=== PATIENT | male | born 1965 | race American Indian/Alaskan Native ===

== ENCOUNTER 2016-04-30 08:07 | Day surgery (SDC) | payer MEDICARE ==
[2016-04-26 08:15] VITALS: BMI 43.4
[2016-04-30 09:16] VITALS: O2SAT 95
[2016-04-30] MEDS ORDERED: Midazolam 2 MG/2 ML VIAL ONE ×2 (10:26→10:38)
[2016-04-30] MEDS ORDERED: Etomidate 20 mg/10ml Inj IV ONE (10:26)
[2016-04-30] MEDS ORDERED: ePHEDrine 50 mg/ml Inj ONE (10:27)
[2016-04-30] MEDS ORDERED: EPINEPHrine 1 mg/ml (1:1000) Inj ONE (10:27)
--- NOTE | 2016-04-30 11:12 | CP.SDSHP ---
Same Day Surgery H & P - History Proposed Procedure: CT guided left thigh lipoma biopsy. Pre-Op Diagnosis: Lipoma - Previous Medical/Surgical History Cardiac: ASHD/CAD - Allergies Allergies: Allergies nut - unspecified [nut] Adverse Reaction (Verified 09/17/15 18:16) RASH - Physical Exam Vital Signs: Vital Signs 04/30/16 08:34 Temperature 97.6 F Pulse Rate 73 Respiratory 20 Rate Blood Pressure 159/91 H O2 Sat by Pulse 95 Oximetry Mental Status: Alert & Oriented x3 Neuro: WNL Heart: WNL Lungs: WNL - Impression Impression: Pt with a left thigh lipoma. Plan CT guided core biopsy. Pt. Evaluated Today:Candidate for Anesthesia & Procedure: Yes (ASA 3 Malampati 4) - Date & Time Date: 04/30/16 Time: 10:00 Short Stay Discharge - Short Stay Discharge Admitting Diagnosis/Reason for Visit: LEAH Disposition: HOME/ ROUTINE
--- NOTE | 2016-04-30 11:15 | PCM.SURG1 ---
Surgeon's Initial Post Op Note - Surgeon's Notes Surgeon: Ciro Neumann MD Assembler Corncob Pipes: None Type of Anesthesia: IV Sedation Pre-Operative Diagnosis: Lipoma Operative Findings: CT showed a lipoma between the left vastus medialis and lateralis muscles in the upper thigh. Post-Operative Diagnosis: Lipoma Operation Performed: CT guided core biopsy of left thigh lipoma. Specimen/Specimens Removed: 18 g core x 3 Estimated Blood Loss: EBL {In ML}: 0 Blood Products Given: N/A Drains Used: No Drains Post-Op Condition: Good Date of Surgery/Procedure: 04/30/16 Time of Surgery/Procedure: 11:00
[2016-04-30 11:53] VITALS: RESP 18; TEMP 97.3
[2016-04-30 12:03] VITALS: BP 127/78; PULSE 73
--- NOTE | 2016-04-30 12:51 | CT ---
PROCEDURE: Date of procedure: 04/30/2016 Procedure: 1. CT-guided biopsy of left thigh soft tissue mass 2. CT guidance for procedure, [address] Medications: The patient sedated by the anesthesiologist with IV sedation, 8 cc 1 percent lidocaine HISTORY: Large left thigh soft tissue mass which may represent a lipoma. TECHNIQUE: Following informed consent and procedure time-out, the patient was placed supine on the CT table noncontrast CT scan of the lower pelvis and proximal thigh was performed. A large hypodense mass is is present between the vastus medialis and lateralis muscles in the proximal left thigh. The patient was sedated by the anesthesiologist in the thigh was prepped and draped in the usual sterile fashion. After the skin was anesthetized with 1 percent lidocaine, an 18 gauge core needle was advanced under CT guidance into the mass. Upon confirmation of needle position, three 18 gauge core specimens were obtained and sent for routine histology. A post biopsy CT scan showed no hematoma. IMPRESSION: CT-guided biopsy core biopsy of left thigh hypodense soft tissue mass.
== END 2016-04-30 12:03 | disposition home or self-care (01) ==
LOC: C.SPRAD 08:07
PROVIDERS: ATTEND Radiology Vascular & Interventional Radiology
DX: D17.24 Benign lipomatous neoplasm of skin and subcutaneous tissue of left leg (principal); I25.10 Atherosclerotic heart disease of native coronary artery without angina pectoris; E11.9 Type 2 diabetes mellitus without complications
CPT/HCPCS: 20206; 77012; 82948; 88305; J0171; J2250; J3010

== ENCOUNTER 2016-05-06 09:36 | Emergency (ER) | payer MEDICARE ==
[2016-05-06 09:36] VITALS: BMI 43.4
[2016-05-06 09:46] VITALS: BP 163/96; PULSE 74; RESP 18; TEMP 98; O2SAT 96
--- NOTE | 2016-05-06 10:31 | C.PDOC ---
History Of Present Illness 50 year old male presents to the ED with complaints of left foot pain, swelling , and redness that has worsened over the last one week. He was told by PMD that he has gout and was given allopurinol. Patient denies any falls, injuries, fever, calf pain, chest pain, or SOB. Time Seen by Provider: 05/06/16 09:48 Chief Complaint (Nursing): Lower Extremity Problem/Injury History Per: Patient History/Exam Limitations: no limitations Onset/Duration Of Symptoms: Days Current Symptoms Are (Timing): Still Present - Knee Description Of Injury: denies: Fell - Ankle/Foot Description Of Injury: denies: Fell Past Medical History Reviewed: Historical Data, Nursing Documentation, Vital Signs Vital Signs: Last Vital Signs Temp 98 F 05/06/16 09:42 Pulse 74 05/06/16 09:42 Resp 18 05/06/16 09:42 BP 163/96 H 05/06/16 09:42 Pulse Ox 96 05/06/16 11:38 - Medical History PMH: Asthma (seasonal), Cardia Arrhythmia, CHF (Sys LV chronic, non ischemic on cath), Diabetes, HTN, Hypercholesterolemia, Hyperlipidemia, Seizures (childhood no longer), Sleep Apnea Surgical History: Endoscopy, Pacemaker - [facility] Procedures INFLUENZA VACCINATION (01/06/14) VACCINATION NEC (01/06/14) Family History: States: Unknown Family Hx - Social History Hx Tobacco Use: Yes Hx Alcohol Use: No Hx Substance Use: No - Immunization History Hx Tetanus Toxoid Vaccination: Yes Hx Influenza Vaccination: Yes Hx Pneumococcal Vaccination: Yes Review Of Systems Constitutional: Negative for: Fever, Chills Cardiovascular: Negative for: Chest Pain Respiratory: Negative for: Shortness of Breath Gastrointestinal: Negative for: Nausea, Vomiting, Diarrhea Musculoskeletal: Positive for: Foot Pain (left foot pain, swelling, and erythema ). Negative for: Leg Pain Physical Exam - Physical Exam Appears: Non-toxic, No Acute Distress, Other (appears in mild pain) Skin: Warm, Dry Cardiovascular: Rhythm Regular, No Murmur Respiratory: No Accessory Muscle Use, No Rales, No Rhonchi, No Stridor, No Wheezing Gastrointestinal/Abdominal: Soft, No Tenderness, No Guarding, No Rebound Extremity: Normal ROM, Tenderness (moderate to palpation on left foot first MTP joint ), No Calf Tenderness, Capillary Refill (less than 2 seconds ), Swelling ( mild swelling and erythema to left food first MTP joint ), Other (no flux, duration, discharge, or rash. No wounds on foot or near toes. ) Pulses: Left Femoral: Normal, Right Femoral: Normal, Left Dorsalis Pedis: Normal , Right Dorsalis Pedis: Normal Neurological/Psych: Oriented x3 ED Course And Treatment O2 Sat by Pulse Oximetry: 96 Medical Decision Making Medical Decision Making: Patient was given colchoicine and indomethacin prescriptions and told to follow up with primary care doctor. Disposition Counseled Patient/Family Regarding: Diagnosis, Need For Followup, Rx Given - Disposition Referrals: Mak Eastman MD [Staff Provider] - Disposition: HOME/ ROUTINE Disposition Time: 10:35 Condition: GOOD Additional Instructions: FOLLOW UP WITH YOUR DOCTOR IN 1-2 DAYS USE MEIDCATIONS DIRECTED - STOP ALLOPURINOL UNTIL 2 DAYS AFTER SYMPTOMS RESOLVE RETURN TO ER IF SYMPTOMS WORSEN Prescriptions: Colchicine 0.6 mg PO BID #6 capsule Indomethacin [Indocin] 50 mg PO TID #21 cap Instructions: Gout (ED) Print Language: AMERICAN - POA Present On Arrival: None - Clinical Impression Clinical Impression: Gout attack - Scribe Statement The provider has reviewed the documentation as recorded by the Scribe Inga Fraga All medical record entries made by the Scribe were at my direction and personally dictated by me. I have reviewed the chart and agree that the record accurately reflects my personal performance of the history, physical exam, medical decision making, and the department course for this patient. I have also personally directed, reviewed, and agree with the discharge instructions and disposition.
== END 2016-05-06 10:56 | disposition home or self-care (01) ==
LOC: C.ER 09:36
DX: M10.9 Gout, unspecified (principal)

== ENCOUNTER 2016-11-14 06:36 | Emergency (ER) | payer MEDICARE ==
[2016-11-14 06:36] VITALS: BMI 43.4
[2016-11-14 06:52] VITALS: BP 161/85; PULSE 72; RESP 18; TEMP 98.3; O2SAT 97
--- NOTE | 2016-11-14 07:35 | C.PDOC ---
History Of Present Illness 51 year old male, with PMHx of gout, presents to ED for evaluation of left foot/ great toe pain for the past week. Patient states it feels similar to previous gout exacerbations. Patient admits to not being compliant with Allopurinol. Otherwise, denies fall/injures, fever/chills, rash, sensory changes. Time Seen by Provider: 11/14/16 07:03 Chief Complaint (Nursing): Lower Extremity Problem/Injury History Per: Patient History/Exam Limitations: no limitations Onset/Duration Of Symptoms: Days Current Symptoms Are (Timing): Still Present Severity: Moderate Additional History Per: Patient Past Medical History Reviewed: Historical Data, Nursing Documentation, Vital Signs Vital Signs: Last Vital Signs Temp 98.3 F 11/14/16 06:48 Pulse 72 11/14/16 06:48 Resp 18 11/14/16 06:48 BP 161/85 H 11/14/16 06:48 Pulse Ox 97 11/14/16 08:56 - Medical History PMH: Asthma (seasonal), Cardia Arrhythmia, CHF (Sys LV chronic, non ischemic on cath), Diabetes, HTN, Hypercholesterolemia, Hyperlipidemia, Seizures (childhood no longer), Sleep Apnea Surgical History: Endoscopy, Pacemaker - [facility] Procedures INFLUENZA VACCINATION (01/06/14) VACCINATION NEC (01/06/14) Family History: States: No Known Family Hx - Social History Hx Tobacco Use: Yes Hx Alcohol Use: Yes Hx Substance Use: No - Immunization History Hx Tetanus Toxoid Vaccination: Yes Hx Influenza Vaccination: Yes Hx Pneumococcal Vaccination: Yes Review Of Systems Except As Marked, All Systems Reviewed And Found Negative. Constitutional: Negative for: Fever, Chills Respiratory: Negative for: Shortness of Breath Musculoskeletal: Positive for: Foot Pain (left) Skin: Negative for: Rash Neurological: Negative for: Weakness, Numbness Physical Exam - Physical Exam Appears: Well, Non-toxic, No Acute Distress Skin: Normal Color, Warm, Dry, No Rash Eye(s): bilateral: Normal Inspection Oral Mucosa: Moist Neck: Supple Cardiovascular: Rhythm Regular Respiratory: Normal Breath Sounds, No Rales, No Rhonchi, No Wheezing Extremity: Normal ROM (FROM of left foot), Tenderness (tenderness to palpation of left foot 1st MTP joint ), No Calf Tenderness, Capillary Refill (<2 seconds all digits), No Deformity, Swelling (mild swelling and warmth at left foot 1st MTP joint, no erythema) Extremity: Bilateral: Atraumatic Pulses: Left Dorsalis Pedis: Normal, Right Dorsalis Pedis: Normal Neurological/Psych: Oriented x3, Normal Sensation Gait: Steady ED Course And Treatment O2 Sat by Pulse Oximetry: 97 (on RA) Pulse Ox Interpretation: Normal Progress Note: Patient was PO colchicine and PO Indomethacin, as well as Rxs for same. He was instructed to follow up with PMD in 1-2 days, and understands he should return to ED if symptoms worsen. Reevaluation Time: 07:50 Reassessment Condition: Improved Disposition Counseled Patient/Family Regarding: Diagnosis, Need For Followup, Rx Given - Disposition Referrals: Mak Eastman MD [Staff Provider] - Disposition: HOME/ ROUTINE Disposition Time: 07:50 Condition: STABLE Additional Instructions: FOLLOW UP WITH YOUR DOCTOR IN 1-2 DAYS USE MEDICATIONS DIRECTED RETURN TO ER IF SYMPTOMS WORSEN Prescriptions: Colchicine 0.6 mg PO DAILY #3 tablet Indomethacin [Indocin] 50 mg PO TID PRN #20 cap PRN Reason: PAIN Instructions: Gout (ED) Forms: ServiceRelated (Bulgarian) Print Language: AZERI - Clinical Impression Clinical Impression: Gout attack - Scribe Statement The provider has reviewed the documentation as recorded by the Scribe Nika Moss All medical record entries made by the Dinaibe were at my direction and personally dictated by me. I have reviewed the chart and agree that the record accurately reflects my personal performance of the history, physical exam, medical decision making, and the department course for this patient. I have also personally directed, reviewed, and agree with the discharge instructions and disposition.
== END 2016-11-14 07:52 | disposition home or self-care (01) ==
LOC: C.ER 06:36
DX: M10.9 Gout, unspecified (principal); Z91.19 Patient's noncompliance with other medical treatment and regimen

== ENCOUNTER 2017-01-17 10:22 | Inpatient (IN) | payer MEDICARE ==
[2017-01-17 10:23] VITALS: BMI 43.4
--- NOTE | 2017-01-17 11:16 | C.PDOC ---
History Of Present Illness 51 year old male presents to the ED for evaluation of SOB that worsens with laying flat and with exertion that started last . Patient reports he was [place] [facility] [place] an [place], was given 3 epi shots because "his tongue and lips were swollen" and was admitted overnight. 2 days after being discharged home he started to feel the SOB, which has been worsening since. Patient denies CP, abdominal pain, nausea, vomiting, diarrhea, fever, cough. Time Seen by Provider: 01/17/17 10:34 Chief Complaint (Nursing): Shortness Of Breath History Per: Patient History/Exam Limitations: no limitations Onset/Duration Of Symptoms: Days Current Symptoms Are (Timing): Still Present Exacerbating Factor(s): Exertion, Laying Flat Severity: Moderate Associated Symptoms: denies: Fever, Chills, Productive Cough, Dizziness Reports Recently: Hospitalized [place] Additional History Per: Patient Past Medical History Reviewed: Historical Data, Nursing Documentation, Vital Signs Vital Signs: Last Vital Signs Temp 97.6 F 01/18/17 15:37 Pulse 97 H 01/18/17 16:00 Resp 20 01/18/17 15:37 BP 115/74 01/18/17 15:37 Pulse Ox 96 01/18/17 15:37 - Medical History PMH: Asthma (seasonal), Cardia Arrhythmia, CHF (Sys LV chronic, non ischemic on cath), Diabetes, HTN, Hypercholesterolemia, Hyperlipidemia, Seizures (childhood no longer), Sleep Apnea Surgical History: Endoscopy, Pacemaker - [facility] Procedures INFLUENZA VACCINATION (01/06/14) VACCINATION NEC (01/06/14) Family History: States: No Known Family Hx - Social History Hx Tobacco Use: Yes Hx Alcohol Use: Yes Hx Substance Use: No - Immunization History Hx Tetanus Toxoid Vaccination: Yes Hx Influenza Vaccination: Yes Hx Pneumococcal Vaccination: Yes Review Of Systems Except As Marked, All Systems Reviewed And Found Negative. Constitutional: Negative for: Fever, Chills Cardiovascular: Negative for: Chest Pain, Palpitations Respiratory: Positive for: Shortness of Breath. Negative for: Cough Gastrointestinal: Negative for: Nausea, Vomiting, Abdominal Pain Musculoskeletal: Negative for: Neck Pain Skin: Negative for: Rash Neurological: Negative for: Weakness, Numbness Physical Exam - Physical Exam Appears: Well, Non-toxic, No Acute Distress, Other (Morbidly obese, speaking full sentences) Skin: Normal Color, Warm, Dry Head: Normacephalic Eye(s): bilateral: Normal Inspection Oral Mucosa: Moist Neck: Supple Chest: Symmetrical Cardiovascular: Rhythm Regular Respiratory: No Accessory Muscle Use, Rales (B/L at the base), No Rhonchi, No Wheezing Gastrointestinal/Abdominal: Normal Exam, Bowel Sounds, Soft, No Tenderness, Other (Obese) Back: No CVA Tenderness Extremity: Normal ROM, No Calf Tenderness, Swelling (+1 pitting edema B/L LEs) Pulses: Left Dorsalis Pedis: Normal, Right Dorsalis Pedis: Normal Neurological/Psych: Oriented x3 Gait: Steady ED Course And Treatment - Laboratory Results Result Diagrams: 01/18/17 07:51 01/18/17 07:51 ECG: Interpreted By Me, Viewed By Me (sinus tachycardia 101 bpm, normal axis, PVCs, QTc 523ms, no acute ST changes) ECG Interpretation: Abnormal O2 Sat by Pulse Oximetry: 87 (RA) Pulse Ox Interpretation: Abnormal - Radiology CXR: Interpreted by Me, Viewed By Me CXR Interpretation: Yes: Other (Cardiomegaly. Left-sided pacemaker. Mild pulmonary venous congestion.) Progress Note: Plan: Blood work, CXR, EKG ordered and reviewed. Patient given IV Lasix, O2 by NM. - Physician Consult Information Physician Contacted: Mak Eastman Outcome Of Conversation: Discussed patient with PMD, agrees with admission for CHF exacerbation, dyspnea, elevated BNP. Medical Decision Making Medical Decision Making: diferential diagnoses considered: CHF exacerbation, COPD/asthma, CA/ASA, pneumonia, bronchitis Disposition - Disposition Disposition: HOSPITALIZED Disposition Time: 13:32 Condition: STABLE - Clinical Impression Clinical Impression: CHF exacerbation, Dyspnea, Elevated brain natriuretic peptide (BNP) level - Scribe Statement The provider has reviewed the documentation as recorded by the Scribe Donnie Schulz All medical record entries made by the Scribe were at my direction and personally dictated by me. I have reviewed the chart and agree that the record accurately reflects my personal performance of the history, physical exam, medical decision making, and the department course for this patient. I have also personally directed, reviewed, and agree with the discharge instructions and disposition. Decision To Admit - Pt Status Changed To: Hospital Disposition Of: Observation - . Bed Request Type: Telemetry Admitting Physician: Mak Eastman Patient Diagnosis: CHF exacerbation, Dyspnea, Elevated brain natriuretic peptide (BNP) level
[2017-01-17 11:29] LABS: BASO # 0.1 K/uL (0.0-0.2); BASO % 0.6 % (0.0-2.0); EOS # 0.1 K/uL (0.0-0.7); HEMATOCRIT 39.4 % (35.0-51.0); LYMPH # 2.9 K/uL (1.0-4.3); LYMPH % 21.1 % (20.0-40.0); MEAN CORPUSCULAR HEMOGLOBIN 30.2 pg (27.0-31.0); MEAN PLATELET VOLUME 7.7 fL (7.2-11.7); MONO # 0.8 K/uL (0.0-0.8); MONO % 5.7 % (0.0-10.0); NRBC % 0.1 % (0.0-2.0); RED CELL DISTRIBUTION WIDTH 13.6 % (11.5-14.5); WHITE BLOOD COUNT 13.5 K/uL (4.8-10.8)
[2017-01-17 11:32] LABS: MEAN CELL VOLUME 91.3 fL (80.0-94.0)
[2017-01-17 11:34] LABS: INR 1.1
[2017-01-17 11:37] LABS: ALB/GLOB RATIO 1.4 (1.0-2.1); ALKALINE PHOSPHATASE 78 U/L (38-126); ALT/SGPT 80 U/L (21-72); AST/SGOT 36 U/L (17-59); BILIRUBIN,TOTAL 0.9 mg/dL (0.2-1.3); BLOOD UREA NITROGEN 18 mg/dL (9-20); CALCIUM 8.7 mg/dl (8.6-10.4); CARBON DIOXIDE 31 mmol/L (22-30); CHLORIDE 104 mmol/L (98-107); GFR AFRICAN-AMERICAN > 60; GLUCOSE,RANDOM 168 mg/dL (75-110); POTASSIUM 3.7 mmol/L (3.6-5.2); SODIUM 144 mmol/L (132-148); TOTAL PROTEIN 6.7 g/dL (6.3-8.3)
--- NOTE | 2017-01-17 13:09 | RAD ---
HISTORY: SOB COMPARISON: Chest x-ray performed 06/05/15 TECHNIQUE: Chest, one view. FINDINGS: Examination limited by habitus. LUNGS: Azygos lobe, anatomic variant. Mild pulmonary venous congestion. No focal consolidation. Please note that chest x-ray has limited sensitivity for the detection of pulmonary masses. PLEURA: No significant pleural effusion identified. No definite pneumothorax . CARDIOVASCULAR: Left-sided pacemaker. Cardiomegaly. OSSEOUS STRUCTURES: Degenerative changes. VISUALIZED UPPER ABDOMEN: Unremarkable. OTHER FINDINGS: None. IMPRESSION: Cardiomegaly. Left-sided pacemaker. Mild pulmonary venous congestion.
[2017-01-17 15:41] VITALS: RESP 20
[2017-01-17] MEDS ORDERED: Albuterol HFA 90 mcg/actuation (8 g) IH PRN (15:59)
[2017-01-17] MEDS ORDERED: Rosuvastatin Calcium 2.5 mg Tab PO SCH (22:00)
--- NOTE | 2017-01-17 23:48 | CP.PCM.HP ---
History of Present Illness - History of Present Illness History of Present Illness: CC; shortness of breath HPI: 51 year old male with PMH of Htn, Hyperlipidemia, CHF, OA , sleep apnea, non complaint with diet and medications presents to the ED for evaluation of SOB that worsens while laying flat, and exertion that started last . Patient reports he was seen at [facility] for an allergic reaction, patient states he was given 3 epi shots because his tongue and lips were swollen, patient was kept there overnight. Patient was d/c and went home, but 2 days after being home he started to feel SOB and has been worsening since. Patient denies CP, abdominal pain, nausea, vomit, diarrhea. Present on Admission - Present on Admission Any Indicators Present on Admission: Yes Review of Systems - Review of Systems Systems not reviewed;Unavailable: Acuity of Condition - Constitutional Constitutional: Fatigue, Lethargy, Malaise - EENT Eyes: absent: As Per HPI, Blind Spots, Blurred Vision, Change in Vision, Decreased Night Vision, Diplopia, Discharge, Dry Eye, Exophthalmos, Floaters, Irritation, Itchy Eyes, Loss of Peripheral Vision, Pain, Photophobia, Requires Corrective Lenses, Sees Flashes, Spots in Vision, Tunnel Vision, Other Visual Disturbances, Loss of Vision, Other Nose/Mouth/Throat: absent: As Per HPI, Epistaxis, Nasal Congestion, Nasal Discharge, Nasal Obstruction, Nasal Trauma, Nose Pain, Post Nasal Drip, Sinus Pain, Sinus Pressure, Bleeding Gums, Change in Voice, Dental Pain, Dry Mouth, Dysphagia, Halitosis, Hoarsness, Lip Swelling, Mouth Lesions, Mouth Pain, Odynophagia, Sore Throat, Throat Swelling, Tongue Swelling, Facial Pain, Neck Pain, Neck Mass, Other - Cardiovascular Cardiovascular: Chest Pain, Dyspnea. absent: As Per HPI, Acrocyanosis, Chest Pain at Rest, Chest Pain with Activity, Claudication, Diaphoresis, Dyspnea on Exertion, Edema, Irregular Heart Rhythm, Pain Radiating to Arm/Neck/Jaw, Leg Edema, Leg Ulcers, Lightheadedness, Orthopnea, Palpitations, Paroxysmal Nocturnal Dyspnea, Pedal Edema, Radiating Pain, Rapid Heart Rate, Slow Heart Rate, Syncope, Other - Respiratory Respiratory: Cough, Dyspnea Past Patient History - Infectious Disease Hx of Infectious Diseases: None - Past Medical History & Family History Past Medical History?: Yes - Past Social History Smoking Status: Former Smoker - CARDIAC Hx Cardia Arrhythmia: Yes Hx Congestive Heart Failure: Yes (Sys LV chronic, non ischemic on cath) Hx Hypercholesterolemia: Yes Hx Hypertension: Yes Hx Pacemaker: Yes - PULMONARY Hx Asthma: Yes (seasonal) Hx Sleep Apnea: Yes - NEUROLOGICAL Hx Seizures: Yes (childhood no longer) - HEENT Hx HEENT Problems: No - RENAL Hx Chronic Kidney Disease: No - ENDOCRINE/METABOLIC Hx Endocrine Disorders: Yes Hx Diabetes Mellitus Type 2: Yes - HEMATOLOGICAL/ONCOLOGICAL Hx Blood Disorders: No - INTEGUMENTARY Hx Dermatological Problems: No - MUSCULOSKELETAL/RHEUMATOLOGICAL Hx Musculoskeletal Disorders: Yes (pain right shoulder) Hx Back Pain: Yes Hx Falls: No - GASTROINTESTINAL Hx Gastrointestinal Disorders: Yes (gas) Other/Comment: hepatomegaly - GENITOURINARY/GYNECOLOGICAL Hx Genitourinary Disorders: No - PSYCHIATRIC Hx Substance Use: No - SURGICAL HISTORY Hx Surgeries: Yes 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 - ANESTHESIA Hx Anesthesia: Yes Hx Anesthesia Reactions: No Hx Malignant Hyperthermia: No Meds Allergies/Adverse Reactions: Allergies Allergy/AdvReac Type Severity Reaction Status Date / Time nut - unspecified [nut] AdvReac RASH Verified 01/17/17 10:27 Physical Exam - Constitutional Appears: No Acute Distress - Eye Exam Eye Exam: EOMI, Normal appearance, PERRL Pupil Exam: NORMAL ACCOMODATION, PERRL - ENT Exam ENT Exam: Mucous Membranes Moist, Normal Exam - Respiratory Exam Respiratory Exam: Decreased Breath Sounds, Rales, Rhonchi - Cardiovascular Exam Cardiovascular Exam: REGULAR RHYTHM - GI/Abdominal Exam GI & Abdominal Exam: Normal Bowel Sounds, Soft. absent: Tenderness Results - Vital Signs Recent Vital Signs: Last Vital Signs Temp 98.5 F 01/17/17 17:18 Pulse 92 H 01/17/17 23:38 Resp 20 01/17/17 17:18 BP 148/89 01/17/17 17:18 Pulse Ox 93 L 01/17/17 22:32 - Labs Result Diagrams: 01/18/17 07:51 01/18/17 07:51 Labs: Laboratory Results - last 24 hr 01/17/17 01/17/17 01/17/17 11:19 11:19 11:19 WBC 13.5 H RBC 4.32 L Hgb 13.0 Hct 39.4 MCV 91.3 D MCH 30.2 MCHC 33.0 RDW 13.6 Plt Count 207 MPV 7.7 Neut % (Auto) 71.6 Lymph % (Auto) 21.1 [place] % (Auto) 5.7 Eos % (Auto) 1.0 Baso % (Auto) 0.6 Neut # 9.7 H Lymph # 2.9 [place] # 0.8 Eos # 0.1 Baso # 0.1 PT 12.0 INR 1.1 APTT 34 Sodium 144 Potassium 3.7 Chloride 104 Carbon Dioxide 31 H Anion Gap 13 BUN 18 Creatinine 1.0 Est GFR ( Amer) > 60 Est GFR (Non-Af Amer) > 60 POC Glucose (mg/dL) Random Glucose 168 H Calcium 8.7 Total Bilirubin 0.9 AST 36 ALT 80 H Alkaline Phosphatase 78 Total Creatine Kinase 99 CK-MB (Mass) 1.84 Troponin I 0.0550 NT-Pro-B Natriuret Pep 4060 H Total Protein 6.7 Albumin 3.9 Globulin 2.8 Albumin/Globulin Ratio 1.4 01/17/17 01/17/17 01/17/17 12:32 17:05 21:11 WBC RBC Hgb Hct MCV MCH MCHC RDW Plt Count MPV Neut % (Auto) Lymph % (Auto) [place] % (Auto) Eos % (Auto) Baso % (Auto) Neut # Lymph # [place] # Eos # Baso # PT INR APTT Sodium Potassium Chloride Carbon Dioxide Anion Gap BUN Creatinine Est GFR ( Amer) Est GFR (Non-Af Amer) POC Glucose (mg/dL) 157 H 168 H 180 H Random Glucose Calcium Total Bilirubin AST ALT Alkaline Phosphatase Total Creatine Kinase CK-MB (Mass) Troponin I NT-Pro-B Natriuret Pep Total Protein Albumin Globulin Albumin/Globulin Ratio Assessment & Plan (1) CHF (congestive heart failure) Assessment and Plan: diuresis Status: Acute (2) Chest pain Assessment and Plan: cardiac enzymes Status: Acute (3) Diabetes mellitus Status: Chronic (4) Hyperlipidemia Status: Chronic (5) Hypertension Status: Chronic
[2017-01-18 08:12] LABS: HEMATOCRIT 40.4 % (35.0-51.0); MEAN CELL VOLUME 90.6 fL (80.0-94.0); MEAN CORPUSCULAR HEMOGLOBIN 30.3 pg (27.0-31.0); MEAN CORPUSCULAR HGB CONC 33.4 g/dL (33.0-37.0); MEAN PLATELET VOLUME 8.1 fL (7.2-11.7); RED CELL DISTRIBUTION WIDTH 13.7 % (11.5-14.5); WHITE BLOOD COUNT 14.9 K/uL (4.8-10.8)
[2017-01-18 08:52] LABS: BLOOD UREA NITROGEN 19 mg/dL (9-20); CALCIUM 8.7 mg/dl (8.6-10.4); CARBON DIOXIDE 33 mmol/L (22-30); CHLORIDE 100 mmol/L (98-107); GFR AFRICAN-AMERICAN > 60; GLUCOSE,RANDOM 180 mg/dL (75-110); POTASSIUM 3.8 mmol/L (3.6-5.2); SODIUM 141 mmol/L (132-148)
--- NOTE | 2017-01-18 09:13 | CP.PCM.CON ---
History of Present Illness - History of Present Illness History of Present Illness: The pt is a 51 year obese man with HTN , DM and sleep apnea, with another admission for CHF. EF is reduced, normal coronaries by cath a few years ago according to patient and notes. he refused an ICD in the past. BNP is elevated and cxr mild chf. Pt not on bar/arb, and sub-therapeutic aldactone dose. Review of Systems - Review of Systems All systems: reviewed and no additional remarkable complaints except (dyspnea, otherwise negative) Past Patient History - Infectious Disease Hx of Infectious Diseases: None - Past Medical History & Family History Past Medical History?: Yes - Past Social History Smoking Status: Former Smoker - CARDIAC Hx Cardia Arrhythmia: Yes Hx Congestive Heart Failure: Yes (Sys LV chronic, non ischemic on cath) Hx Hypercholesterolemia: Yes Hx Hypertension: Yes Hx Pacemaker: Yes - PULMONARY Hx Asthma: Yes (seasonal) Hx Sleep Apnea: Yes - NEUROLOGICAL Hx Seizures: Yes (childhood no longer) - HEENT Hx HEENT Problems: No - RENAL Hx Chronic Kidney Disease: No - ENDOCRINE/METABOLIC Hx Endocrine Disorders: Yes Hx Diabetes Mellitus Type 2: Yes - HEMATOLOGICAL/ONCOLOGICAL Hx Blood Disorders: No - INTEGUMENTARY Hx Dermatological Problems: No - MUSCULOSKELETAL/RHEUMATOLOGICAL Hx Musculoskeletal Disorders: Yes (pain right shoulder) Hx Back Pain: Yes Hx Falls: No - GASTROINTESTINAL Hx Gastrointestinal Disorders: Yes (gas) Other/Comment: hepatomegaly - GENITOURINARY/GYNECOLOGICAL Hx Genitourinary Disorders: No - PSYCHIATRIC Hx Substance Use: No - SURGICAL HISTORY Hx Surgeries: Yes 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 - ANESTHESIA Hx Anesthesia: Yes Hx Anesthesia Reactions: No Hx Malignant Hyperthermia: No Meds Allergies/Adverse Reactions: Allergies Allergy/AdvReac Type Severity Reaction Status Date / Time nut - unspecified [nut] AdvReac RASH Verified 01/17/17 10:27 - Medications Medications: Current Medications Albuterol (Ventolin Hfa 90 Mcg/Actuation (8 G)) 2 puff IH RQ6 PRN PRN Reason: Shortness of Breath Allopurinol (Zyloprim) 100 mg PO DAILY [facility] Amlodipine Besylate (Norvasc) 5 mg PO DAILY [facility] Aspirin (Ecotrin) 81 mg PO DAILY [facility] Colchicine (Colocrys) 0.6 mg PO BID [facility] Last Admin: 01/17/17 17:22 Dose: Not Given Enoxaparin Sodium (Lovenox) 40 mg SC DAILY [facility] Furosemide (Lasix) 40 mg IVP DAILY [facility] Last Admin: 01/17/17 17:18 Dose: 40 mg Glimepiride (Amaryl) 4 mg PO DAILY [facility] Hydralazine HCl (Apresoline) 25 mg PO DAILY [facility] Metformin HCl (Glucophage) 500 mg PO BID [facility] Metoprolol Succinate (Toprol Xl) 100 mg PO DAILY [facility] Pantoprazole Sodium (Protonix Ec Tab) 40 mg PO DAILY [facility] Rosuvastatin Calcium (Crestor) 2.5 mg PO HS [facility] Last Admin: 01/17/17 21:27 Dose: 2.5 mg Physical Exam - Constitutional Appears: Well - Head Exam Head Exam: ATRAUMATIC, NORMOCEPHALIC - Eye Exam Eye Exam: Normal appearance Pupil Exam: NORMAL ACCOMODATION - ENT Exam ENT Exam: Mucous Membranes Moist - Respiratory Exam Respiratory Exam: Clear to Auscultation Bilateral - Cardiovascular Exam Cardiovascular Exam: REGULAR RHYTHM - GI/Abdominal Exam GI & Abdominal Exam: Normal Bowel Sounds - Exam External exam: NORMAL EXTERNAL EXAM - Extremities Exam Extremities exam: Positive for: pedal edema - Back Exam Back exam: NORMAL INSPECTION - Neurological Exam Neurological exam: Alert, CN II-XII Intact, Oriented x3, Reflexes Normal - Skin Skin Exam: Normal Color Results - Vital Signs Recent Vital Signs: Last Vital Signs Temp 97.9 F 01/18/17 08:31 Pulse 92 H 01/18/17 08:31 Resp 20 01/18/17 08:31 BP 152/96 H 01/18/17 08:31 Pulse Ox 94 L 01/18/17 08:31 - Labs Result Diagrams: 01/18/17 07:51 01/18/17 07:51 Labs: Laboratory Results - last 24 hr 01/17/17 01/17/17 01/17/17 11:19 11:19 11:19 WBC 13.5 H RBC 4.32 L Hgb 13.0 Hct 39.4 MCV 91.3 D MCH 30.2 MCHC 33.0 RDW 13.6 Plt Count 207 MPV 7.7 Neut % (Auto) 71.6 Lymph % (Auto) 21.1 Baker % (Auto) 5.7 Eos % (Auto) 1.0 Baso % (Auto) 0.6 Neut # 9.7 H Lymph # 2.9 Baker # 0.8 Eos # 0.1 Baso # 0.1 PT 12.0 INR 1.1 APTT 34 Sodium 144 Potassium 3.7 Chloride 104 Carbon Dioxide 31 H Anion Gap 13 BUN 18 Creatinine 1.0 Est GFR ( Amer) > 60 Est GFR (Non-Af Amer) > 60 POC Glucose (mg/dL) Random Glucose 168 H Calcium 8.7 Total Bilirubin 0.9 AST 36 ALT 80 H Alkaline Phosphatase 78 Total Creatine Kinase 99 CK-MB (Mass) 1.84 Troponin I 0.0550 NT-Pro-B Natriuret Pep 4060 H Total Protein 6.7 Albumin 3.9 Globulin 2.8 Albumin/Globulin Ratio 1.4 01/17/17 01/17/17 01/17/17 12:32 17:05 21:11 WBC RBC Hgb Hct MCV MCH MCHC RDW Plt Count MPV Neut % (Auto) Lymph % (Auto) Baker % (Auto) Eos % (Auto) Baso % (Auto) Neut # Lymph # Baker # Eos # Baso # PT INR APTT Sodium Potassium Chloride Carbon Dioxide Anion Gap BUN Creatinine Est GFR ( Amer) Est GFR (Non-Af Amer) POC Glucose (mg/dL) 157 H 168 H 180 H Random Glucose Calcium Total Bilirubin AST ALT Alkaline Phosphatase Total Creatine Kinase CK-MB (Mass) Troponin I NT-Pro-B Natriuret Pep Total Protein Albumin Globulin Albumin/Globulin Ratio 01/18/17 01/18/17 01/18/17 06:30 07:51 07:51 WBC 14.9 H RBC 4.46 Hgb 13.5 Hct 40.4 MCV 90.6 MCH 30.3 MCHC 33.4 RDW 13.7 Plt Count 218 MPV 8.1 Neut % (Auto) Lymph % (Auto) Baker % (Auto) Eos % (Auto) Baso % (Auto) Neut # Lymph # Baker # Eos # Baso # PT INR APTT Sodium 141 Potassium 3.8 Chloride 100 Carbon Dioxide 33 H Anion Gap 11 BUN 19 Creatinine 1.0 Est GFR ( Amer) > 60 Est GFR (Non-Af Amer) > 60 POC Glucose (mg/dL) 185 H Random Glucose 180 H Calcium 8.7 Total Bilirubin AST ALT Alkaline Phosphatase Total Creatine Kinase CK-MB (Mass) Troponin I NT-Pro-B Natriuret Pep Total Protein Albumin Globulin Albumin/Globulin Ratio - EKG Data EKG Interpreted by: Myself EKG shows normal: Sinus rhythm (long qt. pvc) Assessment & Plan - Assessment and Plan (Free Text) Assessment: 1. Acute on chronic chf exacerbation, systolic dysfunction: 2. Optimize meds: repeat echo (no recent echo). Outpatient f/u after meds optimized. weight loss. low na.
[2017-01-18] MEDS ORDERED: Metoprolol Succinate 100 mg XL Tab PO SCH (10:00)
[2017-01-18] MEDS ORDERED: Pantoprazole 40 mg EC Tab PO SCH (10:00)
[2017-01-18] MEDS ORDERED: Enoxaparin 40 mg Syringe SC SCH (10:00)
[2017-01-18] MEDS ORDERED: Perflutren Lipid Microsphere 1.5 ML SUS IV ONE (10:31)
--- NOTE | 2017-01-18 17:11 | CARD ---
APPROVED REPORT EXAM: Two-dimensional and M-mode echocardiogram with Doppler, color Doppler with Definity contrast. Other Information Quality : GoodRhythm : INDICATION Congestive Heart Failure Surgery/Intervention ICD/Pacemaker: 2D DIMENSIONS IVSd0.8 (0.7-1.1cm)LVDd7.1 (3.9-5.9cm) PWd1.1 (0.7-1.1cm)LVDs6.3 (2.5-4.0cm) FS (%) 10.7 %LVEF (%)22.6 (>50%) M-Mode DIMENSIONS Left Atrium (MM)4.74 (2.5-4.0cm)Aortic Root3.69 (2.2-3.7cm) Aortic Cusp Exc.2.64 (1.5-2.0cm) Mitral Valve E/A ratio0.0 TDI E/Lateral E'0.0E/Medial E'0.0 Tricuspid Valve TR Peak [id number]/sTR Peak Gr.[id number] LEFT VENTRICLE The Left Ventricle is moderately dilated. There is borderline concentric left ventricular hypertrophy. The systolic function is severely impaired. Left ventricle systolic function is severely impaired. The Ejection Fraction is 20-25%. Severe global hypokinesis. Imaging enhanced views using Definity IV contrast depicts severe left ventricular global hypokinesia. No evidence of thrombus. Undetermined RIGHT VENTRICLE The right ventricle is mildly dilated. Systolic function is mildly to moderately reduced. There is a pacemaker lead in the right ventricle. ATRIA The left atrium is moderately dilated. Left atrial index is moderate to severely increase. The right atrium is mildly to moderately dilated. AORTIC VALVE The aortic valve is normal in structure. There is trace aortic regurgitation. MITRAL VALVE The mitral valve is normal in structure. Mitral regurgitation is trace. TRICUSPID VALVE The tricuspid valve is normal in structure. There is moderate tricuspid regurgitation. Right ventricular systolic pressure is estimated over 60 mmHg. There is moderate-severe pulmonary hypertension. PULMONIC VALVE The pulmonary valve is normal in structure. There is trace pulmonic valvular regurgitation. GREAT VESSELS The aortic root is normal in size. The IVC is not clearlyl seen. PERICARDIAL EFFUSION There is no gross pericardial effusion. <Conclusion> TECHNICALLY DIFFICULT STUDY DUE TO POOR ACOUSTIC WINDOWS Dilated cardiac chambers. Left ventricle systolic function is severely impaired. Severe global hypokinesis. The Ejection Fraction is - 20-25%. Enhanced left ventricular views using Definity IV contrast depicts severe global hypokinesia. No evidence of thrombus. The right ventricular systolic function is mildly to moderately reduced. Right ventricular systolic pressure is estimated - 65 mmHg compatible with severe pulmonary hypertension. Pacing wire in right heart. No gross pericardial effusion. Rest of the study as reported above.
[2017-01-18 18:38] VITALS: BP 115/74; TEMP 97.6
--- NOTE | 2017-01-18 23:09 | CP.PCM.DIS ---
Provider - Provider Date of Admission: 01/18/17 16:14 Attending physician: Mak Eastman MD Hospital Course - Lab Results Lab Results: Most Recent Lab Values WBC 14.9 K/uL (4.8-10.8) H 01/18/17 07:51 RBC 4.46 Mil/uL (4.40-5.90) 01/18/17 07:51 Hgb 13.5 g/dL (12.0-18.0) 01/18/17 07:51 Hct 40.4 % (35.0-51.0) 01/18/17 07:51 MCV 90.6 fL (80.0-94.0) 01/18/17 07:51 MCH 30.3 pg (27.0-31.0) 01/18/17 07:51 MCHC 33.4 g/dL (33.0-37.0) 01/18/17 07:51 RDW 13.7 % (11.5-14.5) 01/18/17 07:51 Plt Count 218 K/uL (130-400) 01/18/17 07:51 MPV 8.1 fL (7.2-11.7) 01/18/17 07:51 Neut % (Auto) 71.6 % (50.0-75.0) 01/17/17 11:19 Lymph % (Auto) 21.1 % (20.0-40.0) 01/17/17 11:19 [place] % (Auto) 5.7 % (0.0-10.0) 01/17/17 11:19 Eos % (Auto) 1.0 % (0.0-4.0) 01/17/17 11:19 Baso % (Auto) 0.6 % (0.0-2.0) 01/17/17 11:19 Neut # 9.7 K/uL (1.8-7.0) H 01/17/17 11:19 Lymph # 2.9 K/uL (1.0-4.3) 01/17/17 11:19 [place] # 0.8 K/uL (0.0-0.8) 01/17/17 11:19 Eos # 0.1 K/uL (0.0-0.7) 01/17/17 11:19 Baso # 0.1 K/uL (0.0-0.2) 01/17/17 11:19 PT 12.0 SECONDS (9.7-12.2) 01/17/17 11:19 INR 1.1 01/17/17 11:19 APTT 34 SECONDS (21-34) 01/17/17 11:19 Sodium 141 mmol/L (132-148) 01/18/17 07:51 Potassium 3.8 mmol/L (3.6-5.2) 01/18/17 07:51 Chloride 100 mmol/L (98-107) 01/18/17 07:51 Carbon Dioxide 33 mmol/L (22-30) H 01/18/17 07:51 Anion Gap 11 (10-20) 01/18/17 07:51 BUN 19 mg/dL (9-20) 01/18/17 07:51 Creatinine 1.0 mg/dL (0.8-1.5) 01/18/17 07:51 Est GFR ( Amer) > 60 01/18/17 07:51 Est GFR (Non-Af Amer) > 60 01/18/17 07:51 POC Glucose (mg/dL) 151 mg/dL (65-110) H 01/18/17 16:55 Random Glucose 180 mg/dL (75-110) H 01/18/17 07:51 Calcium 8.7 mg/dl (8.6-10.4) 01/18/17 07:51 Total Bilirubin 0.9 mg/dL (0.2-1.3) 01/17/17 11:19 AST 36 U/L (17-59) 01/17/17 11:19 ALT 80 U/L (21-72) H 01/17/17 11:19 Alkaline Phosphatase 78 U/L (38-126) 01/17/17 11:19 Total Creatine Kinase 99 U/L (55-170) 01/17/17 11:19 CK-MB (Mass) 1.84 ng/mL (0.0-3.38) 01/17/17 11:19 Troponin I 0.0550 ng/mL (0.00-0.120) 01/17/17 11:19 NT-Pro-B Natriuret Pep 4060 pg/mL (0-900) H 01/17/17 11:19 Total Protein 6.7 g/dL (6.3-8.3) 01/17/17 11:19 Albumin 3.9 g/dL (3.5-5.0) 01/17/17 11:19 Globulin 2.8 gm/dL (2.2-3.9) 01/17/17 11:19 Albumin/Globulin Ratio 1.4 (1.0-2.1) 01/17/17 11:19 - Hospital Course Hospital Course: Pt was admitted with Acute on chronic chf exacerbation, systolic dysfunction: Optimize meds: repeat echo (no recent echo). Outpatient f/u after meds optimized. advised weight loss. low na consumption pt is for discharge today Discharge Exam - Head Exam Head Exam: ATRAUMATIC, NORMOCEPHALIC Discharge Plan - Follow Up Plan Condition: GOOD Disposition: HOME/ ROUTINE Instructions: Heart Failure (DC), Heart Healthy Diet (DC) Additional Instructions: Follow up in the office in one week Referrals: Mak Eastman MD [Staff Provider] - Efraín Wallace MD [Staff Provider] -
[2017-01-19 01:16] VITALS: PULSE 97
[2017-01-19] MEDS ORDERED: Influenza Vaccine 60 mcg/0.5 mL SYR (4YR UP) IM ONE (10:00)
--- NOTE | 2017-01-19 22:57 | CARD ---
APPROVED REPORT EKG Measurement Heart [id number] <Conclusion> Sinus tachycardia with occasional premature ventricular complexes Possible Left atrial enlargement Prolonged QT Abnormal ECG
[2017-01-20] MEDS ORDERED: Pneumococcal 23-Valent Vaccine IM ONE (10:00)
[2017-01-20 16:06] VITALS: O2SAT 87
--- NOTE | 2017-01-21 11:05 | PCM.HF ---
Heart Failure Core Measure - Heart Failure Ejection Fraction: Less Than 40 % EUGENIA Inhibitor Prescribed: No Contraindication/Reason for not providing: [employer]UG [employer] CHO[employer] Beta-Nevin Prescribed: Metoprolol Succinate Angiotensin II Receptor Nevin Prescribed: No Contraindication/Reason for not providing: [employer] DRUG OF CHOICE AnticoagulationTherapy for Atrial Fibrillation/Atrialflutter: No Contraindication/Reason for not providing: NO HX OF AFIB Hydralazine Nitrate Prescribed: Yes Implantable Cardioverter Defibrillator Therapy: No Contraindication/Reason for not providing: PATIENT REFUSE ICD Cardiac Resynchronization Therapy Prescribed: No Contraindication/Reason for not providing: PATIENT REFUSE IN THE PAST - Follow up Will be discharged to: Home Follow Up Date (must be within 7 days from discharge): 01/22/17 Follow Up Time: 09:00
== END 2017-01-18 19:19 | disposition home or self-care (01) | DRG 293 ==
LOC: C.ER 10:22 → C.9E 13:32 → C.6T 15:41 → OBSVTOIN 01-18 16:14
PROVIDERS: ADMIT Internal Medicine; ATTEND Internal Medicine
DX: I11.0 Hypertensive heart disease with heart failure (principal); E11.9 Type 2 diabetes mellitus without complications; I50.23 Acute on chronic systolic (congestive) heart failure; R07.9 Chest pain, unspecified; E78.5 Hyperlipidemia, unspecified; E66.9 Obesity, unspecified; E78.00 Pure hypercholesterolemia, unspecified; G47.30 Sleep apnea, unspecified; J45.909 Unspecified asthma, uncomplicated; Z87.891 Personal history of nicotine dependence; Z95.0 Presence of cardiac pacemaker

== ENCOUNTER 2017-02-18 10:17 | Inpatient (IN) | payer MEDICARE ==
[2017-02-18 10:17] VITALS: BMI 43.4
--- NOTE | 2017-02-18 10:46 | C.PDOC ---
History Of Present Illness 51 y/o male with PMHx of CHF, DM and HTN presents to ED with complaints of exertional sob for 3 days with consistent leg swelling. Patient is speaking in full sentences and states "whenever I get going, it is hard to breath" and admits to similar exacerbation in past. Patient was catheterized a few years ago and currently denies fever, chills, chest pain or any other complaints at this time. Time Seen by Provider: 02/18/17 10:33 Chief Complaint (Nursing): Shortness Of Breath History Per: Patient History/Exam Limitations: no limitations Onset/Duration Of Symptoms: Days Current Symptoms Are (Timing): Still Present Initiating Event: Upper Respiratory Illness Exacerbating Factor(s): Exertion Reports Recently: Seen In ED Additional History Per: Prior Records (EF 20-25%) Past Medical History Reviewed: Historical Data, Nursing Documentation, Vital Signs Vital Signs: Last Vital Signs Temp 97.8 F 02/18/17 18:00 Pulse 98 H 02/18/17 18:00 Resp 18 02/18/17 18:00 BP 144/92 H 02/18/17 18:00 Pulse Ox 97 02/18/17 18:00 - Medical History PMH: Asthma (seasonal), Cardia Arrhythmia, CHF (Sys LV chronic, non ischemic on cath), Diabetes, HTN, Hypercholesterolemia, Hyperlipidemia, Seizures (childhood no longer), Sleep Apnea Surgical History: Endoscopy, Pacemaker - [facility] Procedures INFLUENZA VACCINATION (01/06/14) VACCINATION NEC (01/06/14) Family History: States: No Known Family Hx - Social History Hx Tobacco Use: Yes Hx Alcohol Use: Yes Hx Substance Use: No - Immunization History Hx Tetanus Toxoid Vaccination: Yes Hx Influenza Vaccination: Yes Hx Pneumococcal Vaccination: Yes Review Of Systems Constitutional: Negative for: Fever, Chills Cardiovascular: Negative for: Chest Pain Respiratory: Positive for: SOB with Excertion Gastrointestinal: Negative for: Nausea, Vomiting Skin: Negative for: Rash Physical Exam - Physical Exam Appears: Non-toxic, No Acute Distress, Other (Morbidly obese) Skin: Warm, Dry, No Rash Head: Atraumatic, Normacephalic Nose: Normal Oral Mucosa: Moist Throat: Normal, No Erythema, No Exudate Neck: Normal ROM, Other (Posterior neck fat pad) Chest: Symmetrical Cardiovascular: Rhythm Regular Respiratory: Normal Breath Sounds, No Accessory Muscle Use, No Rales, No Rhonchi , No Wheezing Gastrointestinal/Abdominal: Soft, No Tenderness, No Guarding, No Rebound Extremity: Pedal Edema (Mild), No Deformity Extremity: Bilateral: Normal ROM Neurological/Psych: Oriented x3 ED Course And Treatment - Laboratory Results Result Diagrams: 02/18/17 11:19 02/18/17 11:19 ECG: Interpreted By Me, Viewed By Me ECG Rhythm: Sinus Rhythm Rate From EC (bpm) O2 Sat by Pulse Oximetry: 96 (RA) Pulse Ox Interpretation: Normal - Other Rad CXR X-Ray: Viewed By Me, Read By Radiologist Interpretation: HISTORY: SOB. COMPARISON: Chest x-ray performed 01/17/17. TECHNIQUE: Chest PA and lateral. FINDINGS: Examination limited by habitus. LUNGS: Azygos lobe, anatomic variant. Mild pulmonary venous congestion. No focal consolidation. Please note that chest x-ray has limited sensitivity for the detection of pulmonary masses. PLEURA: No significant pleural effusion identified. No definite pneumothorax . CARDIOVASCULAR: Cardiomegaly. Single lead left-sided AICD. OSSEOUS STRUCTURES: Degenerative changes. VISUALIZED UPPER ABDOMEN: Unremarkable. OTHER FINDINGS: None. IMPRESSION: Mild pulmonary venous congestion. Cardiomegaly. Single lead left-sided AICD. Progress Note: Blood work ordered, CXR, ECG, Lasix ordered. On re-evaluation, pt notes SOB persists. Case discsused with Dr Eastman, agreed upon plan and admission. Disposition - Disposition Disposition: HOSPITALIZED Disposition Time: 13:45 Condition: STABLE - Clinical Impression Clinical Impression: Diabetes mellitus, CHF exacerbation - PA / PATIENT SERVICE SPECIALIST / Resident Statement MD/DO has reviewed & agrees with the documentation as recorded. - Scribe Statement The provider has reviewed the documentation as recorded by the Dinaibalen Tipton All medical record entries made by the Jose F were at my direction and personally dictated by me. I have reviewed the chart and agree that the record accurately reflects my personal performance of the history, physical exam, medical decision making, and the department course for this patient. I have also personally directed, reviewed, and agree with the discharge instructions and disposition.
--- NOTE | 2017-02-18 11:28 | RAD ---
HISTORY: SOB COMPARISON: Chest x-ray performed 01/17/17 TECHNIQUE: Chest PA and lateral FINDINGS: Examination limited by habitus. LUNGS: Azygos lobe, anatomic variant. Mild pulmonary venous congestion. No focal consolidation. Please note that chest x-ray has limited sensitivity for the detection of pulmonary masses. PLEURA: No significant pleural effusion identified. No definite pneumothorax . CARDIOVASCULAR: Cardiomegaly. Single lead left-sided AICD OSSEOUS STRUCTURES: Degenerative changes. VISUALIZED UPPER ABDOMEN: Unremarkable. OTHER FINDINGS: None. IMPRESSION: Mild pulmonary venous congestion. Cardiomegaly. Single lead left-sided AICD.
[2017-02-18 11:30] LABS: BASO # 0.1 K/uL (0.0-0.2); BASO % 0.8 % (0.0-2.0); EOS # 0.1 K/uL (0.0-0.7); EOS % 0.8 % (0.0-4.0); HEMOGLOBIN 13.1 g/dL (12.0-18.0); LYMPH # 2.3 K/uL (1.0-4.3); LYMPH % 21.5 % (20.0-40.0); MEAN CELL VOLUME 91.1 fL (80.0-94.0); MEAN CORPUSCULAR HEMOGLOBIN 30.6 pg (27.0-31.0); MEAN CORPUSCULAR HGB CONC 33.6 g/dL (33.0-37.0); MEAN PLATELET VOLUME 8.4 fL (7.2-11.7); MONO # 0.5 K/uL (0.0-0.8); MONO % 4.7 % (0.0-10.0); NEUT # 7.5 K/uL (1.8-7.0); NEUT % 72.2 % (50.0-75.0); NRBC % 0.1 % (0.0-2.0); RBC 4.29 Mil/uL (4.40-5.90); RED CELL DISTRIBUTION WIDTH 14.6 % (11.5-14.5); WHITE BLOOD COUNT 10.5 K/uL (4.8-10.8)
[2017-02-18 11:42] LABS: ALB/GLOB RATIO 1.3 (1.0-2.1); ALBUMIN 4.1 g/dL (3.5-5.0); ALT/SGPT 39 U/L (21-72); AST/SGOT 30 U/L (17-59); BLOOD UREA NITROGEN 19 mg/dL (9-20); CALCIUM 8.7 mg/dl (8.6-10.4); GFR AFRICAN-AMERICAN > 60; GFR NON-AFRICAN AMERICAN > 60
[2017-02-18 11:46] LABS: INR 1.1
[2017-02-18 11:52] LABS: B-TYPE NATRIURETIC PEPTIDE 1630 pg/mL (0-900); CK-MB 1.19 ng/mL (0.0-3.38)
[2017-02-18] MEDS ORDERED: Albuterol 0.083% Inhal Sol (2.5 mg/3 mL) UD IH STA (12:35)
[2017-02-18] MEDS ORDERED: Enoxaparin 40 mg Syringe SC SCH (16:45)
[2017-02-18 20:21] LABS: CK-MB 1.17 ng/mL (0.0-3.38); TROPONIN I 0.054 ng/mL (0.00-0.120)
[2017-02-18] MEDS: (Novolin R) Insulin Human Regular 100 units/ml vial SC SCH (22:24)
--- NOTE | 2017-02-18 22:32 | CP.PCM.HP ---
History of Present Illness - History of Present Illness History of Present Illness: CC: Shortness of breath, chest pain HPI: 51 y/o AA morbidly obeses male with PMHx of CHF (low EF ), DM , sleep apnea and HTN presents to ED with complaints of exertional sob for 3 days with consistent leg swelling. Patient is speaking in full sentences and states "whenever I get going, it is hard to breath" and admits to similar exacerbation in past. Patient was catheterized a few years ago and currently denies fever, chills, chest pain or any other complaints at this time, Pt also complainsof dyspnea at rest, and dyspepesia Present on Admission - Present on Admission Any Indicators Present on Admission: Yes Review of Systems - Review of Systems Systems not reviewed;Unavailable: Acuity of Condition - Constitutional Constitutional: Fatigue, Lethargy, Malaise - EENT Eyes: absent: As Per HPI, Blind Spots, Blurred Vision, Change in Vision, Decreased Night Vision, Diplopia, Discharge, Dry Eye, Exophthalmos, Floaters, Irritation, Itchy Eyes, Loss of Peripheral Vision, Pain, Photophobia, Requires Corrective Lenses, Sees Flashes, Spots in Vision, Tunnel Vision, Other Visual Disturbances, Loss of Vision, Other Nose/Mouth/Throat: absent: As Per HPI, Epistaxis, Nasal Congestion, Nasal Discharge, Nasal Obstruction, Nasal Trauma, Nose Pain, Post Nasal Drip, Sinus Pain, Sinus Pressure, Bleeding Gums, Change in Voice, Dental Pain, Dry Mouth, Dysphagia, Halitosis, Hoarsness, Lip Swelling, Mouth Lesions, Mouth Pain, Odynophagia, Sore Throat, Throat Swelling, Tongue Swelling, Facial Pain, Neck Pain, Neck Mass, Other - Cardiovascular Cardiovascular: Chest Pain, Chest Pain at Rest, Dyspnea, Dyspnea on Exertion - Respiratory Respiratory: Dyspnea, Snoring - Gastrointestinal Gastrointestinal: Dyspepsia, Nausea - Genitourinary Genitourinary: Nocturia, Urinary Frequency - Musculoskeletal Musculoskeletal: Arthralgias, Back Pain, Stiffness - Integumentary Integumentary: Dry Skin. absent: As Per HPI, Acne, Alopecia, Bleeding Lesions, Change in Hair, Change in Nails, Change in Pigmentation, Changing Lesions, Erythema, Furuncle, Hirsutism, Lesions, New Lesions, Non-Healing Lesions, Photosensitivity, Pruritus, Rash, Skin Pain, Skin Ulcer, Sores, Striae, Swelling , Unusual Bruising, Wounds, Jaundice, Other - Neurological Neurological: absent: As Per HPI, Abnormal Gait, Abnormal Hearing, Abnormal Movements, Abnormal Speech, Behavioral Changes, Burning Sensations, Confusion, Convulsions, Disequilibrium, Dizziness, Numbness, Focal Weakness, Frequent Falls , Headaches, Lack of Coordination, Loss of Vision, Memory Loss, Paresthesias, Radicular Pain, Restless Legs, Sensory Deficit, Syncope, Tingling, Tremor, Vertigo, Weakness, Other Visual Disturbances, Other - Psychiatric Psychiatric: absent: As Per HPI, Abnormal Sleep Pattern, Anhedonia, Anxiety, Auditory Hallucinations, Behavioral Changes, Change in Appetite, Change in Libido, Confusion, Depression, Difficulty Concentrating, Hallucinations, Homicidal Ideation, Hopelessness, Irritability, Memory Loss, Mood Swings, Panic Attacks, Paranoia, Suicidal Ideation, Visual Hallucinations, Tactile Hallucinations, Other - Endocrine Endocrine: Fatigue, Polydipsia Past Patient History - Infectious Disease Hx of Infectious Diseases: None - Past Medical History & Family History Past Medical History?: Yes - Past Social History Smoking Status: Former Smoker - CARDIAC Hx Cardia Arrhythmia: Yes Hx Congestive Heart Failure: Yes (Sys LV chronic, non ischemic on cath) Hx Hypercholesterolemia: Yes Hx Hypertension: Yes Hx Pacemaker: Yes - PULMONARY Hx Asthma: Yes (seasonal) Hx Sleep Apnea: Yes - NEUROLOGICAL Hx Seizures: Yes (childhood no longer) - HEENT Hx HEENT Problems: No - RENAL Hx Chronic Kidney Disease: No - ENDOCRINE/METABOLIC Hx Endocrine Disorders: Yes Hx Diabetes Mellitus Type 2: Yes - HEMATOLOGICAL/ONCOLOGICAL Hx Blood Disorders: No - INTEGUMENTARY Hx Dermatological Problems: No - MUSCULOSKELETAL/RHEUMATOLOGICAL Hx Falls: No - GASTROINTESTINAL Hx Gastrointestinal Disorders: Yes (gas) Other/Comment: hepatomegaly - GENITOURINARY/GYNECOLOGICAL Hx Genitourinary Disorders: No - PSYCHIATRIC Hx Substance Use: No - SURGICAL HISTORY Hx Surgeries: Yes 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 - ANESTHESIA Hx Anesthesia: Yes Hx Anesthesia Reactions: No Hx Malignant Hyperthermia: No Has any member of the family had a problem w/ anesthesia?: No Meds Allergies/Adverse Reactions: Allergies Allergy/AdvReac Type Severity Reaction Status Date / Time nut - unspecified [nut] AdvReac RASH Verified 02/18/17 10:40 Physical Exam - Constitutional Additional comments: elderly male in mild resp distress - Head Exam Head Exam: ATRAUMATIC, NORMAL INSPECTION, NORMOCEPHALIC - Eye Exam Eye Exam: EOMI, Normal appearance, PERRL Pupil Exam: NORMAL ACCOMODATION, PERRL - Respiratory Exam Respiratory Exam: Decreased Breath Sounds, Rales - Cardiovascular Exam Cardiovascular Exam: +S1, +S2 Additional comments: S3 positive - GI/Abdominal Exam GI & Abdominal Exam: Normal Bowel Sounds, Soft. absent: Tenderness - Rectal Exam Rectal Exam: Deferred Results - Vital Signs Recent Vital Signs: Last Vital Signs Temp 98.1 F 02/18/17 18:30 Pulse 98 H 02/18/17 18:30 Resp 22 02/18/17 18:30 BP 129/77 02/18/17 18:30 Pulse Ox 96 02/18/17 18:46 - Labs Result Diagrams: 02/18/17 11:19 02/18/17 11:19 Labs: Laboratory Results - last 24 hr 02/18/17 02/18/17 02/18/17 11:19 11:19 11:19 WBC 10.5 RBC 4.29 L Hgb 13.1 Hct 39.1 MCV 91.1 MCH 30.6 MCHC 33.6 RDW 14.6 H Plt Count 178 MPV 8.4 Neut % (Auto) 72.2 Lymph % (Auto) 21.5 [place] % (Auto) 4.7 Eos % (Auto) 0.8 Baso % (Auto) 0.8 Neut # 7.5 H Lymph # 2.3 [place] # 0.5 Eos # 0.1 Baso # 0.1 PT 12.0 INR 1.1 APTT 33 Sodium 138 Potassium 3.8 Chloride 100 Carbon Dioxide 28 Anion Gap 13 BUN 19 Creatinine 1.0 Est GFR ( Amer) > 60 Est GFR (Non-Af Amer) > 60 POC Glucose (mg/dL) Random Glucose 191 H Calcium 8.7 Total Bilirubin 1.0 AST 30 ALT 39 Alkaline Phosphatase 63 Total Creatine Kinase 142 CK-MB (Mass) 1.19 Troponin I 0.0450 NT-Pro-B Natriuret Pep 1630 H Total Protein 7.2 Albumin 4.1 Globulin 3.1 Albumin/Globulin Ratio 1.3 02/18/17 02/18/17 19:45 22:24 WBC RBC Hgb Hct MCV MCH MCHC RDW Plt Count MPV Neut % (Auto) Lymph % (Auto) [place] % (Auto) Eos % (Auto) Baso % (Auto) Neut # Lymph # [place] # Eos # Baso # PT INR APTT Sodium Potassium Chloride Carbon Dioxide Anion Gap BUN Creatinine Est GFR ( Amer) Est GFR (Non-Af Amer) POC Glucose (mg/dL) 134 H Random Glucose Calcium Total Bilirubin AST ALT Alkaline Phosphatase Total Creatine Kinase 139 CK-MB (Mass) 1.17 Troponin I 0.0540 NT-Pro-B Natriuret Pep Total Protein Albumin Globulin Albumin/Globulin Ratio Assessment & Plan (1) CHF (congestive heart failure) Status: Acute (2) CHF exacerbation Status: Acute (3) Diabetes mellitus Status: Chronic (4) Chest pain Assessment and Plan: Rule out ID diueretics intake out put daily body weight cardiac enzymes x 3 Status: Acute
[2017-02-19 01:21] LABS: CK-MB 1.03 ng/mL (0.0-3.38)
[2017-02-19 03:48] VITALS: RESP 20
[2017-02-19 05:33] LABS: BLOOD UREA NITROGEN 22 mg/dL (9-20); CALCIUM 8.5 mg/dl (8.6-10.4); GFR AFRICAN-AMERICAN > 60; GFR NON-AFRICAN AMERICAN > 60
[2017-02-19] MEDS: Albuterol HFA 90 mcg/actuation (8 g) IH PRN (07:14)
[2017-02-19] MEDS: (Novolin R) Insulin Human Regular 100 units/ml vial SC SCH ×4 (08:13→22:00)
[2017-02-19] MEDS: Enoxaparin 40 mg Syringe SC SCH (09:57)
[2017-02-19] MEDS: Metoprolol Succinate 100 mg XL Tab PO SCH (09:59)
[2017-02-19] MEDS: Pantoprazole 40 mg EC Tab PO SCH (09:59)
[2017-02-19] MEDS ORDERED: Potassium Chloride 20 mEq ER Tab PO ONE (10:00)
[2017-02-19] MEDS: Potassium Chloride 20 mEq ER Tab PO SCH (15:31)
[2017-02-19 17:39] LABS: INR 1.1; PROTHROMBIN TIME 11.8 SECONDS (9.7-12.2)
--- NOTE | 2017-02-19 21:23 | CP.PCM.PN ---
Subjective - Date & Time of Evaluation Date of Evaluation: 02/19/17 Time of Evaluation: 17:25 - Subjective Subjective: Pt seen and examined, pt is short of breath, EF is only 25% Objective - Vital Signs/Intake and Output Vital Signs (last 24 hours): Temp Pulse Resp BP Pulse Ox 97.6 F 98 H 20 128/88 95 02/19/17 15:24 02/19/17 15:30 02/19/17 15:24 02/19/17 18:09 02/19/17 15:24 - Medications Medications: Current Medications Albuterol (Ventolin Hfa 90 Mcg/Actuation (8 G)) 2 puff IH RQ6 PRN PRN Reason: Shortness of Breath Last Admin: 02/19/17 07:14 Dose: 2 puff Allopurinol (Zyloprim) 100 mg PO DAILY [facility] Last Admin: 02/19/17 09:59 Dose: 100 mg Aspirin (Ecotrin) 81 mg PO DAILY [facility] Last Admin: 02/19/17 09:58 Dose: 81 mg Enoxaparin Sodium (Lovenox) 40 mg SC DAILY [facility] Last Admin: 02/19/17 09:57 Dose: 40 mg Furosemide (Lasix) 60 mg IVP BID [facility] Last Admin: 02/19/17 18:09 Dose: 60 mg Glimepiride (Amaryl) 4 mg PO DAILY [facility] Last Admin: 02/19/17 09:59 Dose: 4 mg Hydralazine HCl (Apresoline) 25 mg PO Q8 [facility] Last Admin: 02/19/17 13:49 Dose: 25 mg Insulin Human Regular (Novolin R) 0 unit SC [facility] PRN Reason: Protocol Last Admin: 02/19/17 18:09 Dose: Not Given Losartan Potassium (Cozaar) 50 mg PO DAILY [facility] Last Admin: 02/19/17 12:43 Dose: 50 mg Metformin HCl (Glucophage) 1,000 mg PO DAILY [facility] Last Admin: 02/19/17 09:59 Dose: 1,000 mg Metoprolol Succinate (Toprol Xl) 100 mg PO DAILY [facility] Last Admin: 02/19/17 09:59 Dose: 100 mg Pantoprazole Sodium (Protonix Ec Tab) 40 mg PO DAILY [facility] Last Admin: 02/19/17 09:59 Dose: 40 mg Potassium Chloride (K-Dur 20 Meq Er Tab) 20 meq PO DAILY [facility] Last Admin: 02/19/17 15:31 Dose: 20 meq Rosuvastatin Calcium (Crestor) 5 mg PO HS [facility] Last Admin: 02/18/17 22:21 Dose: 5 mg Spironolactone (Aldactone) 25 mg PO DAILY [facility] - Labs Labs: 02/18/17 11:19 02/19/17 00:39 PT 11.8 SECONDS (9.7-12.2) 02/19/17 17:26 INR 1.1 02/19/17 17:26 APTT 33 SECONDS (21-34) 02/18/17 11:19 - Constitutional Appears: Other (resp distreess) - Head Exam Head Exam: ATRAUMATIC, NORMAL INSPECTION, NORMOCEPHALIC - Eye Exam Eye Exam: EOMI, Normal appearance, PERRL Pupil Exam: NORMAL ACCOMODATION, PERRL - Respiratory Exam Respiratory Exam: Accessory Muscle Use, Decreased Breath Sounds, Rales - Cardiovascular Exam Cardiovascular Exam: REGULAR RHYTHM, +S1, +S2. absent: Murmur - GI/Abdominal Exam GI & Abdominal Exam: Soft, Normal Bowel Sounds. absent: Tenderness Assessment and Plan (1) CHF (congestive heart failure) Status: Acute (2) CHF exacerbation Status: Acute (3) Diabetes mellitus Status: Chronic (4) Chest pain Status: Acute (5) S/P implantation of automatic cardioverter/defibrillator (AICD) Status: Acute
--- NOTE | 2017-02-20 00:27 | CON ---
DATE: CARDIOLOGY CONSULT REASON FOR CONSULTATION: Exacerbation of congestive heart failure. HISTORY OF PRESENT ILLNESS: The patient is a 51-year-old morbid obese -[place] male, who weighs 320 pounds and he is 6 feet high, with a history of dilated cardiomyopathy, status post ICD placement. The patient was not sure about the year, whether 2014 or 2015, at [facility], and follows with Dr. Yanes, glassware engraver. The patient reports one discharge of defibrillator in January 2016 and he stated his showed heart rate was raised from 190 to 210. The patient claims to having compliance with his medications and he saw Dr. Yanes recently about 2 months ago. He follows Dr. Eastman in his office. The patient reportedly underwent cardiac catheterization, which revealed nonischemic cardiomyopathy. SOCIAL HISTORY: The patient is nonsmoker, he is an occasional drinker. MEDICATIONS: Aldactone 25 mg once a day, Amaryl 4 mg once a day, hydralazine 25 mg q. 8 hours, Cozaar 50 mg daily, Crestor 5 mg once a day, once a day, Glucophage 1 g daily, Lasix 40 mg intravenously daily, Lovenox 40 mg subcutaneous once a day, Toprol-XL 100 mg once a day, Zyloprim 100 mg once a day, albuterol inhaler 2 puffs q. 6 hours p.r.n. REVIEW OF SYSTEMS: No nausea or vomiting, no fever or chills, no productive cough and no resistant chest pain and no recent discharge of defibrillator. PHYSICAL EXAMINATION: GENERAL: The patient is a middle-aged male, morbidly obese, who does not appear to be in acute distress. VITAL SIGNS: Blood pressure 143/98, heart rate 98, temperature 97.9, respirations 20. HEENT: Normocephalic. CHEST: Diminished breath sounds over the bases. HEART: S1 and S2 regular and distant. ABDOMEN: Soft. EXTREMITIES: 2+ pitting edema. LABORATORY DATA: Hemoglobin, hematocrit, white count and platelet count are within normal limits. PT, PTT and INR within normal limits. Today's SMA-7: Sodium 137, potassium 3.5, chloride 103, CO2 of 26, glucose 180, BUN 22, creatinine 1.1. Troponin 0.045, 0.054 and 0.054. ProBNP is 1630. Chest x-ray reveals cardiomegaly, ICD lead noted, [id number] CHF. EKG reveals sinus rhythm at rate of 97, left atrial enlargement. Echocardiogram study performed last month at [facility] revealed ejection fraction in the range of 20% to 25% with severe global hypokinesis, dilated cardiac chambers. No evidence of thrombus. RV systolic pressure is indicated at 65 mmHg consistent with severe pulmonary hypertension. The systolic function of right ventricle is mildly to moderately reduced. ASSESSMENT: 1. Right ventricular failure. 2. Severe pulmonary hypertension. 3. Uncontrolled systemic hypertension. 4. Uncontrolled diabetes mellitus. 5. Status post implantable cardioverter defibrillator placement. 6. Hypokalemia. RECOMMENDATION: Increase Lasix to 60 mg intravenously twice a day, continue Aldactone at 25 mg once a day, start K-Dur 20 mEq once a day, continue Cozaar 50 mg q. 8 hours, continue Toprol-XL at 100 mg daily, consider initiating Coumadin therapy if the patient remains compliant with his outpatient medications and followup. Case was discussed with the INDUSTRIAL RELATIONS WORKER and will be discussed with Dr. Mak Eastman, the primary physician. Obtain a followup BMP in a.m. Bill Cook MD
[2017-02-20 07:47] LABS: INR 1.1; PROTHROMBIN TIME 11.8 SECONDS (9.7-12.2)
[2017-02-20] MEDS: Albuterol HFA 90 mcg/actuation (8 g) IH PRN ×3 (08:06→20:33)
[2017-02-20 08:19] LABS: BLOOD UREA NITROGEN 19 mg/dL (9-20); CALCIUM 8.6 mg/dl (8.6-10.4); GFR AFRICAN-AMERICAN > 60; GFR NON-AFRICAN AMERICAN > 60
[2017-02-20] MEDS: (Novolin R) Insulin Human Regular 100 units/ml vial SC SCH ×4 (08:34→23:27)
[2017-02-20] MEDS: Metoprolol Succinate 100 mg XL Tab PO SCH (10:05)
[2017-02-20] MEDS: Pantoprazole 40 mg EC Tab PO SCH (10:06)
[2017-02-20] MEDS: Enoxaparin 40 mg Syringe SC SCH (10:07)
[2017-02-20] MEDS: Potassium Chloride 20 mEq ER Tab PO SCH (10:08)
--- NOTE | 2017-02-20 14:07 | PN ---
DATE: SUBJECTIVE: The patient's shortness of breath is slightly improved. He denies any chest pain. PHYSICAL EXAMINATION: VITAL SIGNS: Blood pressure 113/88, heart rate 84, temperature 97.9, respirations 20. HEENT: Normocephalic. CHEST: Diminished breath sounds over the bases. HEART: S1 and S2 regular. ABDOMEN: Soft. EXTREMITIES: 1+ pitting edema. LABORATORY DATA: Today's SMA-7 is within normal limits except for glucose of 161. Today's INR is 1.1. ASSESSMENT: 1. Dilated cardiomyopathy. 2. Status post implantable cardioverter-defibrillator placement. 3. Uncontrolled diabetes mellitus. 4. Uncontrolled hypertension. 5. Morbid obesity. 6. Severe pulmonary hypertension. RECOMMENDATIONS: Continue Aldactone 25 mg once a day, hydralazine 25 mg q. 8 hours, Coumadin 7.5 mg . Continue Cozaar 50 mg once a day, aspirin 81 mg once a day, Crestor 5 mg once a day, Lasix 60 mg intravenous twice a day, Lovenox at 40 mg subcutaneously once a day, allopurinol at 100 mg once a day. Bill Cook MD
[2017-02-20 16:23] VITALS: TEMP 97.7
--- NOTE | 2017-02-20 23:17 | CARD ---
APPROVED REPORT EKG Measurement Heart [id number] <Conclusion> Sinus rhythm with premature supraventricular complexes Left atrial enlargement Borderline ECG
[2017-02-21 07:39] LABS: INR 1.1; PROTHROMBIN TIME 12.7 SECONDS (9.7-12.2)
[2017-02-21] MEDS: (Novolin R) Insulin Human Regular 100 units/ml vial SC SCH ×2 (08:14→12:40)
[2017-02-21 09:01] VITALS: PULSE 88; O2SAT 97
[2017-02-21] MEDS: Enoxaparin 40 mg Syringe SC SCH (10:20)
[2017-02-21] MEDS: Metoprolol Succinate 100 mg XL Tab PO SCH (10:45)
[2017-02-21] MEDS: Pantoprazole 40 mg EC Tab PO SCH (10:45)
[2017-02-21] MEDS: Potassium Chloride 20 mEq ER Tab PO SCH (10:46)
[2017-02-21 10:58] VITALS: BP 128/70
--- NOTE | 2017-02-21 14:33 | CP.PCM.PN ---
Subjective - Date & Time of Evaluation Date of Evaluation: 02/21/17 Time of Evaluation: 02:25 - Subjective Subjective: Patient seen today , states sob improved denies any chest pain, palpitations, dizziness No overnight events recorded on monitor ambulating without sob Objective - Vital Signs/Intake and Output Vital Signs (last 24 hours): Temp Pulse Resp BP Pulse Ox 97.7 F 88 20 128/70 97 02/21/17 08:59 02/21/17 08:59 02/21/17 08:59 02/21/17 10:57 02/21/17 08:59 Intake and Output: 02/21/17 02/21/17 06:59 18:59 Intake Total 60 Balance 60 - Medications Medications: Current Medications Albuterol (Ventolin Hfa 90 Mcg/Actuation (8 G)) 2 puff IH RQ6 PRN PRN Reason: Shortness of Breath Last Admin: 02/20/17 20:33 Dose: 2 puff Allopurinol (Zyloprim) 100 mg PO DAILY [facility] Last Admin: 02/21/17 10:45 Dose: 100 mg Ascorbic Acid (Vitamin C 500 Mg Tab) 500 mg PO DAILY [facility] Last Admin: 02/21/17 10:44 Dose: 500 mg Aspirin (Ecotrin) 81 mg PO DAILY [facility] Last Admin: 02/21/17 10:44 Dose: 81 mg Enoxaparin Sodium (Lovenox) 40 mg SC DAILY [facility] Last Admin: 02/21/17 10:20 Dose: 40 mg Furosemide (Lasix) 60 mg IVP BID [facility] Last Admin: 02/21/17 10:57 Dose: 60 mg Glimepiride (Amaryl) 4 mg PO DAILY [facility] Last Admin: 02/21/17 10:44 Dose: 4 mg Hydralazine HCl (Apresoline) 25 mg PO Q8 [facility] Last Admin: 02/21/17 13:21 Dose: 25 mg Insulin Human Regular (Novolin R) 0 unit SC ACHS [facility] PRN Reason: Protocol Last Admin: 02/21/17 12:40 Dose: 2 unit Losartan Potassium (Cozaar) 50 mg PO DAILY [facility] Last Admin: 02/21/17 10:45 Dose: 50 mg Metformin HCl (Glucophage) 1,000 mg PO DAILY [facility] Last Admin: 02/21/17 10:45 Dose: 1,000 mg Metoprolol Succinate (Toprol Xl) 100 mg PO DAILY [facility] Last Admin: 02/21/17 10:45 Dose: 100 mg Pantoprazole Sodium (Protonix Ec Tab) 40 mg PO DAILY [facility] Last Admin: 02/21/17 10:45 Dose: 40 mg Potassium Chloride (K-Dur 20 Meq Er Tab) 20 meq PO DAILY [facility] Last Admin: 02/21/17 10:46 Dose: 20 meq Rosuvastatin Calcium (Crestor) 5 mg PO HS [facility] Last Admin: 02/20/17 21:16 Dose: 5 mg Spironolactone (Aldactone) 25 mg PO DAILY [facility] Last Admin: 02/21/17 10:44 Dose: 25 mg Thiamine HCl (Vitamin B1 Tab) 100 mg PO DAILY [facility] Last Admin: 02/21/17 13:57 Dose: 100 mg Warfarin Sodium (Coumadin) 7.5 mg PO 1800 [facility] Stop: 02/21/17 18:01 Warfarin Sodium (Coumadin) 5 mg PO 1800 ONE Stop: 02/21/17 18:01 - Labs Labs: 02/18/17 11:19 02/20/17 07:22 PT 12.7 SECONDS (9.7-12.2) H 02/21/17 07:25 INR 1.1 02/21/17 07:25 APTT 33 SECONDS (21-34) 02/18/17 11:19 Assessment and Plan - Assessment and Plan (Free Text) Assessment: A/P 51 y/o male with PMHx of CHF, DM and HTN, cardiomyopathy with ICD admitted for sob leg swelling. Patient clinically improved with IV lasix Dr. Cook consulted for exc. CHF and low EF , recommends to start on coumadin and Dr. Eastman agrees D/W Dr. Cook cleared for discharge form cardiology standpoint an d continue lasix 80 mg daily and f/u wiht Dr. Hernandez office D/W Dr. Eastman, stable for discharge home today and f/u with Dr. Eastman office on
--- NOTE | 2017-02-21 14:34 | PCM.HF ---
Heart Failure Core Measure - Heart Failure Ejection Fraction: Less Than 40 % EUGENIA Inhibitor Prescribed: Yes Beta-Nevin Prescribed: Metoprolol Succinate Angiotensin II Receptor Nevin Prescribed: Yes AnticoagulationTherapy for Atrial Fibrillation/Atrialflutter: Yes Aldosterone Antagonist Prescribed: Yes Hydralazine Nitrate Prescribed: Yes Implantable Cardioverter Defibrillator Therapy: Yes Cardiac Resynchronization Therapy Prescribed: No Contraindication/Reason for not providing: pt has ICD - Follow up Will be discharged to: Home Follow Up Date (must be within 7 days from discharge): 02/26/17 Follow Up Time: 09:00
--- NOTE | 2017-02-21 15:58 | PN ---
DATE: SUBJECTIVE: The patient feels better. His shortness of breath has improved. He still has leg swelling. PHYSICAL EXAMINATION VITAL SIGNS: Blood pressure 127/70, heart rate 88, temperature 97.7, respirations 20. HEENT: Normocephalic. CHEST: Diminished breath sounds over the bases. HEART: S1, S2, regular. ABDOMEN: Soft. EXTREMITIES: 2+ pitting edema. LABORATORY DATA: Today's blood sugar is 163 and 245. ASSESSMENT: 1. Dilated cardiomyopathy. 2. Ethyl alcohol abuse, patient has admitted to me that he drank heavily before his presentation. 3. Uncontrolled diabetes mellitus. 4. Hypertension. 5. Morbid obesity. 6. Severe pulmonary hypertension. RECOMMENDATIONS: Case was discussed with the ELECTRICAL ELECTRONICS ENGINEER. Continue Aldactone 25 mg once a day. Change Lasix to 80 mg orally once a day. Continue K-Dur at 20 mEq once a day. The patient would receive 7.5 of Coumadin today and can be discharged on 5 mg of Coumadin daily. His INR today is 1.1. The patient will be started on thiamine at 100 mg orally daily. The patient will follow with his primary supervisor electron tube processing, Dr. Yanes as an outpatient. Bill Cook MD
--- NOTE | 2017-02-21 23:15 | CP.PCM.DIS ---
Provider - Provider Date of Admission: 02/19/17 15:03 Attending physician: Mak Eastman MD Time Spent in preparation of Discharge (in minutes): 45 Diagnosis - Discharge Diagnosis (1) CHF (congestive heart failure) Status: Acute (2) CHF exacerbation Status: Acute (3) Diabetes mellitus Status: Chronic (4) Chest pain Status: Acute Hospital Course - Lab Results Lab Results: Most Recent Lab Values WBC 10.5 K/uL (4.8-10.8) 02/18/17 11:19 RBC 4.29 Mil/uL (4.40-5.90) L 02/18/17 11:19 Hgb 13.1 g/dL (12.0-18.0) 02/18/17 11:19 Hct 39.1 % (35.0-51.0) 02/18/17 11:19 MCV 91.1 fL (80.0-94.0) 02/18/17 11:19 MCH 30.6 pg (27.0-31.0) 02/18/17 11:19 MCHC 33.6 g/dL (33.0-37.0) 02/18/17 11:19 RDW 14.6 % (11.5-14.5) H 02/18/17 11:19 Plt Count 178 K/uL (130-400) 02/18/17 11:19 MPV 8.4 fL (7.2-11.7) 02/18/17 11:19 Neut % (Auto) 72.2 % (50.0-75.0) 02/18/17 11:19 Lymph % (Auto) 21.5 % (20.0-40.0) 02/18/17 11:19 [place] % (Auto) 4.7 % (0.0-10.0) 02/18/17 11:19 Eos % (Auto) 0.8 % (0.0-4.0) 02/18/17 11:19 Baso % (Auto) 0.8 % (0.0-2.0) 02/18/17 11:19 Neut # 7.5 K/uL (1.8-7.0) H 02/18/17 11:19 Lymph # 2.3 K/uL (1.0-4.3) 02/18/17 11:19 [place] # 0.5 K/uL (0.0-0.8) 02/18/17 11:19 Eos # 0.1 K/uL (0.0-0.7) 02/18/17 11:19 Baso # 0.1 K/uL (0.0-0.2) 02/18/17 11:19 PT 12.7 SECONDS (9.7-12.2) H 02/21/17 07:25 INR 1.1 02/21/17 07:25 APTT 33 SECONDS (21-34) 02/18/17 11:19 Sodium 136 mmol/L (132-148) 02/20/17 07:22 Potassium 3.8 mmol/L (3.6-5.2) 02/20/17 07:22 Chloride 98 mmol/L (98-107) 02/20/17 07:22 Carbon Dioxide 27 mmol/L (22-30) 02/20/17 07:22 Anion Gap 14 (10-20) 02/20/17 07:22 BUN 19 mg/dL (9-20) 02/20/17 07:22 Creatinine 0.8 mg/dL (0.8-1.5) 02/20/17 07:22 Est GFR ( Amer) > 60 02/20/17 07:22 Est GFR (Non-Af Amer) > 60 02/20/17 07:22 POC Glucose (mg/dL) 245 mg/dL (65-110) H 02/21/17 11:41 Random Glucose 161 mg/dL (75-110) H 02/20/17 07:22 Calcium 8.6 mg/dl (8.6-10.4) 02/20/17 07:22 Total Bilirubin 1.0 mg/dL (0.2-1.3) 02/18/17 11:19 AST 30 U/L (17-59) 02/18/17 11:19 ALT 39 U/L (21-72) 02/18/17 11:19 Alkaline Phosphatase 63 U/L (38-126) 02/18/17 11:19 Total Creatine Kinase 143 U/L (55-170) 02/19/17 00:39 CK-MB (Mass) 1.03 ng/mL (0.0-3.38) 02/19/17 00:39 Troponin I 0.0540 ng/mL (0.00-0.120) 02/19/17 00:39 NT-Pro-B Natriuret Pep 1630 pg/mL (0-900) H 02/18/17 11:19 Total Protein 7.2 g/dL (6.3-8.3) 02/18/17 11:19 Albumin 4.1 g/dL (3.5-5.0) 02/18/17 11:19 Globulin 3.1 gm/dL (2.2-3.9) 02/18/17 11:19 Albumin/Globulin Ratio 1.3 (1.0-2.1) 02/18/17 11:19 - Hospital Course Hospital Course: A/P 51 y/o male with PMHx of CHF, DM and HTN, cardiomyopathy with ICD admitted for sob leg swelling. Patient clinically improved with IV lasix Dr. Cook consulted for exc. CHF and low EF , recommends to start on coumadin and Dr. Eastman agrees D/W Dr. Cook cleared for discharge form cardiology standpoint an d continue lasix 80 mg daily and f/u wiht Dr. Hernandez office pt stable for discharge home today and f/u with me in office on Discharge Exam - Head Exam Head Exam: ATRAUMATIC, NORMAL INSPECTION, NORMOCEPHALIC - Eye Exam Eye Exam: Normal appearance - ENT Exam ENT Exam: Mucous Membranes Moist - Respiratory Exam Respiratory Exam: Decreased Breath Sounds, NORMAL BREATHING PATTERN - Cardiovascular Exam Cardiovascular Exam: REGULAR RHYTHM, +S1, +S2 - GI/Abdominal Exam GI & Abdominal Exam: Normal Bowel Sounds Discharge Plan - Discharge Medications Prescriptions: Spironolactone [Aldactone] 25 mg PO DAILY #30 tab hydrALAZINE [Apresoline] 25 mg PO Q8 #90 tab Warfarin [Coumadin] 5 mg PO 1800 #10 tab Losartan [Cozaar] 50 mg PO DAILY #30 tab Potassium Chloride [K-Dur 20 mEq ER Tab] 20 meq PO DAILY #20 tab Furosemide [Lasix] 80 mg PO DAILY #30 tablet Metoprolol Succinate [Toprol XL] 100 mg PO DAILY #30 tab Thiamine [Vitamin B1 Tab] 100 mg PO DAILY #30 tab - Follow Up Plan Condition: STABLE Disposition: HOME/ ROUTINE Instructions: Metoprolol (By mouth), Spironolactone (By mouth), Furosemide (By mouth), Potassium Chloride (By mouth), Warfarin (By mouth), Thiamine (Vitamin B- 1) (By mouth), Hydralazine (By mouth), Losartan (By mouth), Heart Failure (DC), Heart Healthy Diet (DC) Additional Instructions: Please f/u with Dr. Eastman office next Please f/u with Dr. Yanes office in 1 month- call and make appointment continue medication as per medication PLEASE FL[facility]CAR [facility] MEDICATION FROM [facility] Referrals: Georgina Yanes MD [Staff Provider] - Mak Eastman MD [Staff Provider] -
--- NOTE | 2017-02-21 23:16 | CP.PCM.PN ---
Subjective - Date & Time of Evaluation Date of Evaluation: 02/20/17 Time of Evaluation: 16:45 - Subjective Subjective: pt seen and examined , less short of breath on medical management Objective - Vital Signs/Intake and Output Vital Signs (last 24 hours): Temp Pulse Resp BP Pulse Ox 97.7 F 88 20 128/70 97 02/21/17 08:59 02/21/17 08:59 02/21/17 08:59 02/21/17 10:57 02/21/17 08:59 - Labs Labs: 02/18/17 11:19 02/20/17 07:22 PT 12.7 SECONDS (9.7-12.2) H 02/21/17 07:25 INR 1.1 02/21/17 07:25 APTT 33 SECONDS (21-34) 02/18/17 11:19 - Constitutional Appears: No Acute Distress - Head Exam Head Exam: ATRAUMATIC, NORMAL INSPECTION, NORMOCEPHALIC - Eye Exam Eye Exam: EOMI, Normal appearance, PERRL Pupil Exam: NORMAL ACCOMODATION, PERRL - Respiratory Exam Respiratory Exam: Decreased Breath Sounds, Rales - Cardiovascular Exam Cardiovascular Exam: REGULAR RHYTHM, +S1, +S2. absent: Murmur - GI/Abdominal Exam GI & Abdominal Exam: Soft, Normal Bowel Sounds. absent: Tenderness Assessment and Plan (1) CHF (congestive heart failure) Status: Acute (2) CHF exacerbation Status: Acute (3) Diabetes mellitus Status: Chronic (4) Chest pain Status: Acute
== END 2017-02-21 16:28 | disposition home or self-care (01) | DRG 292 ==
LOC: C.ER 10:17 → C.9E 12:33 → C.6T 17:32 → OBSVTOIN 02-19 15:03
PROVIDERS: ADMIT Internal Medicine; ATTEND Internal Medicine
DX: I11.0 Hypertensive heart disease with heart failure (principal); Z68.41 Body mass index [BMI] 40.0-44.9, adult; I27.29 Other secondary pulmonary hypertension; E66.01 Morbid (severe) obesity due to excess calories; I42.0 Dilated cardiomyopathy; E11.65 Type 2 diabetes mellitus with hyperglycemia; I50.810 Right heart failure, unspecified; J45.909 Unspecified asthma, uncomplicated; E78.00 Pure hypercholesterolemia, unspecified; E87.6 Hypokalemia; G47.30 Sleep apnea, unspecified; F10.10 Alcohol abuse, uncomplicated; E78.5 Hyperlipidemia, unspecified; Z95.810 Presence of automatic (implantable) cardiac defibrillator; Z87.891 Personal history of nicotine dependence

== ENCOUNTER 2017-04-21 17:24 | Inpatient (IN) | payer MEDICARE ==
[2017-04-21 17:47] VITALS: BMI 42.0
--- NOTE | 2017-04-21 19:27 | C.PDOC ---
History Of Present Illness 51yo male, with history of obesity, hypertension, CHF, EF 25% and currently on coumadin, comes in with progressive shortness of breath, and a productive cough with yellow sputum for the past 3 days. He also reports associated lower extremity swelling. He denies any fever, chills, chest pain and offers no other complaints. Time Seen by Provider: 04/21/17 19:03 Chief Complaint (Nursing): Shortness Of Breath History Per: Patient History/Exam Limitations: no limitations Onset/Duration Of Symptoms: Days Current Symptoms Are (Timing): Still Present Associated Symptoms: Productive Cough, Ankle/Leg Swelling Past Medical History Reviewed: Historical Data, Nursing Documentation, Vital Signs Vital Signs: Last Vital Signs Temp 97.9 F 04/24/17 07:00 Pulse 81 04/24/17 07:40 Resp 20 04/24/17 07:00 BP 121/78 04/24/17 07:00 Pulse Ox 98 04/24/17 09:30 - Medical History PMH: Asthma (seasonal), Cardia Arrhythmia, CHF (Sys LV chronic, non ischemic on cath), Diabetes, HTN, Hypercholesterolemia, Hyperlipidemia, Seizures (childhood no longer), Sleep Apnea Denies: Chronic Kidney Disease Surgical History: Endoscopy, Pacemaker - [facility] Procedures INFLUENZA VACCINATION (01/06/14) VACCINATION NEC (01/06/14) Family History: States: Unknown Family Hx - Social History Hx Tobacco Use: Yes Hx Alcohol Use: No Hx Substance Use: No - Immunization History Hx Tetanus Toxoid Vaccination: No Hx Influenza Vaccination: No Hx Pneumococcal Vaccination: No Review Of Systems Except As Marked, All Systems Reviewed And Found Negative. Constitutional: Negative for: Fever, Chills Cardiovascular: Negative for: Chest Pain Respiratory: Positive for: Cough, Shortness of Breath, Sputum Physical Exam - Physical Exam Appears: Non-toxic, Other (obese) Skin: Normal Color, Warm, Dry Head: Normacephalic Eye(s): bilateral: Normal Inspection Nose: Normal Neck: Normal ROM, Supple Chest: Symmetrical Cardiovascular: Rhythm Regular Respiratory: Rales (bilateral) Extremity: Pedal Edema (2+ bilaterally) Neurological/Psych: Oriented x3, Normal Speech, Normal Cognition ED Course And Treatment - Laboratory Results Result Diagrams: 04/24/17 07:19 04/24/17 07:19 O2 Sat by Pulse Oximetry: 98 (RA) Pulse Ox Interpretation: Normal Medical Decision Making Medical Decision Making: Impression: CHF exacerbation, shortness of breath Plan: -- CXR -- EKG -- Labs -- Urinalysis Disposition - Disposition Disposition: HOSPITALIZED Disposition Time: 08:00 Condition: FAIR - Clinical Impression Clinical Impression: CHF (congestive heart failure) - Scribe Statement The provider has reviewed the documentation as recorded by the Scribe (Keesha Lr) Provider Attestation: All medical record entries made by the Scribe were at my direction and personally dictated by me. I have reviewed the chart and agree that the record accurately reflects my personal performance of the history, physical exam, medical decision making, and the department course for this patient. I have also personally directed, reviewed, and agree with the discharge instructions and disposition. Decision To Admit - Pt Status Changed To: Hospital Disposition Of: Inpatient - Admit Certification Admit to Inpatient:: After my assessment, the patient will require hospitalization for at least two midnights. This is because of the severity of symptoms shown, intensity of services needed, and/or the medical risk in this patient being treated as an outpatient. - InPatient: Physician Admission Certification: I certify that this patient requires 2 or more midnights of care for the following reason:: need lasix iv - . Bed Request Type: Telemetry Admitting Physician: Mak Eastman Patient Diagnosis: CHF (congestive heart failure)
[2017-04-21 19:54] LABS: BASO % 0.4 % (0.0-2.0); EOS # 0.1 K/uL (0.0-0.7); EOS % 0.8 % (0.0-4.0); LYMPH # 3.5 K/uL (1.0-4.3); MEAN CELL VOLUME 89.4 fL (80.0-94.0); MEAN CORPUSCULAR HEMOGLOBIN 29.6 pg (27.0-31.0); MEAN CORPUSCULAR HGB CONC 33.1 g/dL (33.0-37.0); MEAN PLATELET VOLUME 8.1 fL (7.2-11.7); MONO # 0.7 K/uL (0.0-0.8); MONO % 6.5 % (0.0-10.0); NEUT % 61.3 % (50.0-75.0); RBC 4.38 Mil/uL (4.40-5.90); WHITE BLOOD COUNT 11.4 K/uL (4.8-10.8)
[2017-04-21 20:03] LABS: INR 1.1; PROTHROMBIN TIME 12.7 SECONDS (9.7-12.2)
[2017-04-21 20:06] LABS: CALCIUM 8.7 mg/dl (8.6-10.4); GFR AFRICAN-AMERICAN > 60; GFR NON-AFRICAN AMERICAN > 60
[2017-04-21 20:08] LABS: ALB/GLOB RATIO 1.1 (1.0-2.1); ALBUMIN 4.4 g/dL (3.5-5.0); ALT/SGPT 30 U/L (21-72); AST/SGOT 60 U/L (17-59); BLOOD UREA NITROGEN 17 mg/dL (9-20)
[2017-04-21 20:15] LABS: B-TYPE NATRIURETIC PEPTIDE 4530 pg/mL (0-900)
[2017-04-21 20:18] LABS: SQUAMOUS EPITHIAL < 1 /hpf (0-5); URINE BACTERIA RARE (<OCC); URINE BILIRUBIN NEGATIVE (NEGATIVE); URINE BLOOD NEGATIVE (NEGATIVE); URINE CLARITY Clear (Clear); URINE COLOR Amber (YELLOW); URINE GLUCOSE (UA) 3+ mg/dL (Normal); URINE HYALINE CAST 0-2 /lpf (0-2); URINE LEUKOCYTE ESTERASE NEG Leu/uL (Negative); URINE PROTEIN 3+ mg/dL (NEGATIVE)
[2017-04-21] MEDS ORDERED: Albuterol HFA 90 mcg/actuation (8 g) IH PRN (23:13)
[2017-04-22 02:52] LABS: CK-MB 1.72 ng/mL (0.0-3.38); TROPONIN I 0.036 ng/mL (0.00-0.120)
[2017-04-22] MEDS: (Novolog) Insulin Aspart, Recombinant 100 u/ml 10 ml vial SC SCH ×4 (07:28→21:20)
--- NOTE | 2017-04-22 08:16 | RAD ---
Chest x-ray single frontal view History: Chest pain. Comparison: 02/18/2017 Findings: Moderate venous congestion. Bilateral hilar prominence. Azygos fissure. Left-sided pacemaker. Cardiomegaly. Degenerative changes in the spine and shoulders. Impression: Moderate venous congestion. Bilateral hilar prominence. Azygos fissure. Left-sided pacemaker. Cardiomegaly.
[2017-04-22 08:24] LABS: CK-MB 1.6 ng/mL (0.0-3.38); TROPONIN I 0.044 ng/mL (0.00-0.120)
[2017-04-22] MEDS: Enoxaparin 40 mg Syringe SC SCH (09:59)
[2017-04-22] MEDS: Potassium Chloride 20 mEq ER Tab PO SCH (10:00)
[2017-04-22] MEDS: Metoprolol Succinate 100 mg XL Tab PO SCH (10:01)
[2017-04-22] MEDS: Pantoprazole 40 mg EC Tab PO SCH (10:01)
--- NOTE | 2017-04-22 12:39 | CARD ---
APPROVED REPORT EKG Measurement Heart [id number] <Conclusion> Sinus rhythm with frequent and consecutive premature ventricular complexes Possible Left atrial enlargement Nonspecific ST and T wave abnormality Prolonged QT Abnormal ECG
--- NOTE | 2017-04-22 13:04 | CP.PCM.CON ---
History of Present Illness - History of Present Illness History of Present Illness: 51-year-old gentleman with prior past medical history significant for dilated Myopathy. He had the prior cath with unremarkable coronaries and reported ejection fraction of 20% on echocardiogram. He is also with obesity and pulmonary hypertension, reported RV systolic pressure of 65 mmHg, and he was maintained on medical treatment that included EUGENIA inhibitor, calcium michelle, and addition to diuresis. He also had an implantable defibrillator. No prior syncope. At this time he's admitted with progressive leg edema and shortness of breath he is to be diuresed in addition to salt and water restriction with daily weights and appropriate weight loss. In addition proper management for hypertension diabetes and hypercholesterolemia Review of Systems - Constitutional Constitutional: Anorexia, Weakness - EENT Eyes: absent: Discharge Ears: absent: Ear Discharge, Dizziness Nose/Mouth/Throat: absent: Epistaxis - Cardiovascular Cardiovascular: Dyspnea, Leg Edema. absent: Acrocyanosis, Chest Pain, Diaphoresis, Palpitations, Syncope - Respiratory Respiratory: Dyspnea. absent: Cough, Hemoptysis - Gastrointestinal Gastrointestinal: absent: Abdominal Pain, Diarrhea, Melena, Nausea, Vomiting - Genitourinary Genitourinary: absent: Change in Urinary Stream Past Patient History - Infectious Disease Hx of Infectious Diseases: None - Past Medical History & Family History Past Medical History?: Yes - Past Social History Smoking Status: Never Smoked - CARDIAC Hx Cardia Arrhythmia: Yes Hx Congestive Heart Failure: Yes (Sys LV chronic, non ischemic on cath) Hx Hypercholesterolemia: Yes Hx Hypertension: Yes Hx Pacemaker: Yes - PULMONARY Hx Asthma: Yes (seasonal) Hx Sleep Apnea: Yes - NEUROLOGICAL Hx Seizures: Yes (childhood no longer) - HEENT Hx HEENT Problems: No - RENAL Hx Chronic Kidney Disease: No - ENDOCRINE/METABOLIC Hx Endocrine Disorders: Yes Hx Diabetes Mellitus Type 2: Yes - HEMATOLOGICAL/ONCOLOGICAL Hx Blood Disorders: No - INTEGUMENTARY Hx Dermatological Problems: No - MUSCULOSKELETAL/RHEUMATOLOGICAL Hx Falls: No - GASTROINTESTINAL Hx Gastrointestinal Disorders: Yes (gas) Other/Comment: hepatomegaly - GENITOURINARY/GYNECOLOGICAL Hx Genitourinary Disorders: No - PSYCHIATRIC Hx Substance Use: No - SURGICAL HISTORY Hx Surgeries: Yes 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- defibrillator - ANESTHESIA Hx Anesthesia: Yes Hx Anesthesia Reactions: No Hx Malignant Hyperthermia: No Meds Allergies/Adverse Reactions: Allergies Allergy/AdvReac Type Severity Reaction Status Date / Time nut - unspecified [nut] AdvReac RASH Verified 04/21/17 17:47 - Medications Medications: Current Medications Albuterol (Ventolin Hfa 90 Mcg/Actuation (8 G)) 2 puff IH RQ6 PRN PRN Reason: Shortness of Breath Albuterol Sulfate (Albuterol 0.083% Inhal Vidya (2.5 Mg/3 Ml) Ud) 2.5 mg INH RQ6 PRN PRN Reason: Wheezing Allopurinol (Zyloprim) 100 mg PO DAILY [facility] Last Admin: 04/22/17 10:01 Dose: 100 mg Ascorbic Acid (Vitamin C 500 Mg Tab) 500 mg PO DAILY [facility] Last Admin: 04/22/17 10:01 Dose: 500 mg Aspirin (Ecotrin) 81 mg PO DAILY [facility] Last Admin: 04/22/17 10:01 Dose: 81 mg Enoxaparin Sodium (Lovenox) 40 mg SC DAILY [facility] Last Admin: 04/22/17 09:59 Dose: 40 mg Furosemide (Lasix) 40 mg IVP Q12 [facility] Last Admin: 04/22/17 09:59 Dose: 40 mg Glimepiride (Amaryl) 4 mg PO DAILY [facility] Last Admin: 04/22/17 10:00 Dose: 4 mg Hydralazine HCl (Apresoline) 25 mg PO Q8 [facility] Last Admin: 04/22/17 07:22 Dose: 25 mg Insulin Aspart (Novolog) 0 unit SC ACHS [facility] PRN Reason: Protocol Last Admin: 04/22/17 11:43 Dose: Not Given Losartan Potassium (Cozaar) 50 mg PO DAILY [facility] Last Admin: 04/22/17 10:01 Dose: 50 mg Metformin HCl (Glucophage) 1,000 mg PO DAILY [facility] Last Admin: 04/22/17 10:01 Dose: 1,000 mg Metoprolol Succinate (Toprol Xl) 100 mg PO DAILY [facility] Last Admin: 04/22/17 10:01 Dose: 100 mg Pantoprazole Sodium (Protonix Ec Tab) 40 mg PO DAILY [facility] Last Admin: 04/22/17 10:01 Dose: 40 mg Potassium Chloride (K-Dur 20 Meq Er Tab) 20 meq PO DAILY [facility] Last Admin: 04/22/17 10:00 Dose: 20 meq Rosuvastatin Calcium (Crestor) 10 mg PO [facility] Spironolactone (Aldactone) 25 mg PO DAILY [facility] Last Admin: 04/22/17 10:01 Dose: 25 mg Thiamine HCl (Vitamin B1 Tab) 100 mg PO DAILY [facility] Last Admin: 04/22/17 10:01 Dose: 100 mg Physical Exam - Constitutional Appears: Non-toxic - Head Exam Head Exam: ATRAUMATIC - Eye Exam Eye Exam: EOMI - ENT Exam ENT Exam: Mucous Membranes Moist - Neck Exam Neck exam: Negative for: Lymphadenopathy, Thyromegaly - Respiratory Exam Respiratory Exam: Clear to Auscultation Bilateral, Rales, Rhonchi - Cardiovascular Exam Cardiovascular Exam: REGULAR RHYTHM, Systolic Murmur - GI/Abdominal Exam GI & Abdominal Exam: Normal Bowel Sounds. absent: Organomegaly, Tenderness - Rectal Exam Rectal Exam: Deferred - Extremities Exam Extremities exam: Positive for: normal capillary refill, pedal edema. Negative for: calf tenderness - Neurological Exam Neurological exam: Alert, Oriented x3 - Psychiatric Exam Psychiatric exam: Normal Affect - Skin Skin Exam: Dry Results - Vital Signs Recent Vital Signs: Last Vital Signs Temp 97.1 F L 04/22/17 06:46 Pulse 91 H 04/22/17 07:17 Resp 20 04/22/17 07:17 BP 125/82 04/22/17 09:59 Pulse Ox 96 04/22/17 09:00 - Labs Result Diagrams: 04/21/17 19:51 04/21/17 22:36 Labs: Laboratory Results - last 24 hr 04/21/17 04/21/17 04/21/17 19:51 19:51 19:51 WBC 11.4 H RBC 4.38 L Hgb 13.0 Hct 39.2 MCV 89.4 MCH 29.6 MCHC 33.1 RDW 16.0 H Plt Count 193 MPV 8.1 Neut % (Auto) 61.3 Lymph % (Auto) 31.0 [place] % (Auto) 6.5 Eos % (Auto) 0.8 Baso % (Auto) 0.4 Neut # (Auto) 7.0 Lymph # (Auto) 3.5 [place] # (Auto) 0.7 Eos # (Auto) 0.1 Baso # (Auto) 0.0 PT 12.7 H INR 1.1 APTT 30 Sodium 144 Potassium 6.0 H Chloride 104 Carbon Dioxide 26 Anion Gap 20 BUN 17 Creatinine 0.9 Est GFR ( Amer) > 60 Est GFR (Non-Af Amer) > 60 POC Glucose (mg/dL) Random Glucose 82 Calcium 8.7 Total Bilirubin 1.7 H AST 60 H D ALT 30 Alkaline Phosphatase 58 Total Creatine Kinase CK-MB (Mass) Troponin I 0.0380 NT-Pro-B Natriuret Pep 4530 H Total Protein 8.4 H Albumin 4.4 Globulin 4.0 H Albumin/Globulin Ratio 1.1 Urine Color Urine Clarity Urine pH Ur Specific [place] Urine Protein Urine Glucose (UA) Urine Ketones Urine Blood Urine Nitrate Urine Bilirubin Urine Urobilinogen Ur Leukocyte Esterase Urine WBC (Auto) Urine RBC (Auto) Ur Squamous Epith Cells Urine Bacteria Hyaline Casts Influenza Typ A,B (EIA) 04/21/17 04/21/17 04/21/17 20:19 20:30 22:36 WBC RBC Hgb Hct MCV MCH MCHC RDW Plt Count MPV Neut % (Auto) Lymph % (Auto) [place] % (Auto) Eos % (Auto) Baso % (Auto) Neut # (Auto) Lymph # (Auto) [place] # (Auto) Eos # (Auto) Baso # (Auto) PT INR APTT Sodium Potassium 3.6 Chloride Carbon Dioxide Anion Gap BUN Creatinine Est GFR ( Amer) Est GFR (Non-Af Amer) POC Glucose (mg/dL) Random Glucose Calcium Total Bilirubin AST ALT Alkaline Phosphatase Total Creatine Kinase CK-MB (Mass) Troponin I NT-Pro-B Natriuret Pep Total Protein Albumin Globulin Albumin/Globulin Ratio Urine Color [place] Urine Clarity Clear Urine pH 5.0 Ur Specific [place] 1.026 Urine Protein 3+ H Urine Glucose (UA) 3+ H Urine Ketones Negative Urine Blood Negative Urine Nitrate Negative Urine Bilirubin Negative Urine Urobilinogen 4.0 Ur Leukocyte Esterase Neg Urine WBC (Auto) 1 Urine RBC (Auto) < 1 Ur Squamous Epith Cells < 1 Urine Bacteria Rare Hyaline Casts 0-2 Influenza Typ A,B (EIA) Negative for flu a/b 04/22/17 04/22/17 04/22/17 02:25 07:27 07:57 WBC RBC Hgb Hct MCV MCH MCHC RDW Plt Count MPV Neut % (Auto) Lymph % (Auto) [place] % (Auto) Eos % (Auto) Baso % (Auto) Neut # (Auto) Lymph # (Auto) [place] # (Auto) Eos # (Auto) Baso # (Auto) PT INR APTT Sodium Potassium Chloride Carbon Dioxide Anion Gap BUN Creatinine Est GFR ( Amer) Est GFR (Non-Af Amer) POC Glucose (mg/dL) 114 H Random Glucose Calcium Total Bilirubin AST ALT Alkaline Phosphatase Total Creatine Kinase 248 H 242 H CK-MB (Mass) 1.72 1.60 Troponin I 0.0360 0.0440 NT-Pro-B Natriuret Pep Total Protein Albumin Globulin Albumin/Globulin Ratio Urine Color Urine Clarity Urine pH Ur Specific [place] Urine Protein Urine Glucose (UA) Urine Ketones Urine Blood Urine Nitrate Urine Bilirubin Urine Urobilinogen Ur Leukocyte Esterase Urine WBC (Auto) Urine RBC (Auto) Ur Squamous Epith Cells Urine Bacteria Hyaline Casts Influenza Typ A,B (EIA) 04/22/17 11:36 WBC RBC Hgb Hct MCV MCH MCHC RDW Plt Count MPV Neut % (Auto) Lymph % (Auto) [place] % (Auto) Eos % (Auto) Baso % (Auto) Neut # (Auto) Lymph # (Auto) [place] # (Auto) Eos # (Auto) Baso # (Auto) PT INR APTT Sodium Potassium Chloride Carbon Dioxide Anion Gap BUN Creatinine Est GFR ( Amer) Est GFR (Non-Af Amer) POC Glucose (mg/dL) 127 H Random Glucose Calcium Total Bilirubin AST ALT Alkaline Phosphatase Total Creatine Kinase CK-MB (Mass) Troponin I NT-Pro-B Natriuret Pep Total Protein Albumin Globulin Albumin/Globulin Ratio Urine Color Urine Clarity Urine pH Ur Specific [place] Urine Protein Urine Glucose (UA) Urine Ketones Urine Blood Urine Nitrate Urine Bilirubin Urine Urobilinogen Ur Leukocyte Esterase Urine WBC (Auto) Urine RBC (Auto) Ur Squamous Epith Cells Urine Bacteria Hyaline Casts Influenza Typ A,B (EIA) Assessment & Plan (1) CHF exacerbation Status: Chronic Comment: Acute over chronic left ventricular systolic heart failure in addition to right ventricular failure (2) Diabetes mellitus Status: Chronic (3) Hyperlipidemia Status: Chronic (4) Hypertension Status: Chronic
[2017-04-22] MEDS ORDERED: Potassium Chloride 20 mEq/15 ml LIQ UD PO STA (13:10)
[2017-04-22] MEDS: Albuterol 0.083% Inhal Sol (2.5 mg/3 mL) UD INH PRN ×2 (13:45→21:35)
[2017-04-22] MEDS: guaiFENesin 600 mg ER Tab PO SCH (18:25)
[2017-04-22] MEDS: Amoxicillin-Clav 875-125 mg Tab PO SCH (18:25)
--- NOTE | 2017-04-22 22:50 | CP.PCM.HP ---
History of Present Illness - History of Present Illness History of Present Illness: CC: progressive shortness of breath, and a productive cough with yellow sputum for the past 3 days, associated lower extremity swelling HPI: 51-year-old gentleman with prior past medical history significant for dilated Myopathy. He had the prior cath with unremarkable coronaries and reported ejection fraction of 20% on echocardiogram. He is also with obesity and pulmonary hypertension, reported RV systolic pressure of 65 mmHg, and he was maintained on medical treatment that included EUGENIA inhibitor, calcium michelle , and addition to diuresis. He also had an implantable defibrillator. No prior syncope. At this time he's admitted with progressive leg edema and shortness of breath he is to be diuresed in addition to salt and water restriction with daily weights and appropriate weight loss. In addition proper management for hypertension diabetes and hypercholesterolemia Present on Admission - Present on Admission Any Indicators Present on Admission: Yes Past Patient History - Infectious Disease Hx of Infectious Diseases: None - Past Medical History & Family History Past Medical History?: Yes - Past Social History Smoking Status: Never Smoked - CARDIAC Hx Cardia Arrhythmia: Yes Hx Congestive Heart Failure: Yes (Sys LV chronic, non ischemic on cath) Hx Hypercholesterolemia: Yes Hx Hypertension: Yes Hx Pacemaker: Yes - PULMONARY Hx Asthma: Yes (seasonal) Hx Sleep Apnea: Yes - NEUROLOGICAL Hx Seizures: Yes (childhood no longer) - HEENT Hx HEENT Problems: No - RENAL Hx Chronic Kidney Disease: No - ENDOCRINE/METABOLIC Hx Endocrine Disorders: Yes Hx Diabetes Mellitus Type 2: Yes - HEMATOLOGICAL/ONCOLOGICAL Hx Blood Disorders: No - INTEGUMENTARY Hx Dermatological Problems: No - MUSCULOSKELETAL/RHEUMATOLOGICAL Hx Falls: No - GASTROINTESTINAL Hx Gastrointestinal Disorders: Yes (gas) Other/Comment: hepatomegaly - GENITOURINARY/GYNECOLOGICAL Hx Genitourinary Disorders: No - PSYCHIATRIC Hx Substance Use: No - SURGICAL HISTORY Hx Surgeries: Yes 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- defibrillator - ANESTHESIA Hx Anesthesia: Yes Hx Anesthesia Reactions: No Hx Malignant Hyperthermia: No Meds Allergies/Adverse Reactions: Allergies Allergy/AdvReac Type Severity Reaction Status Date / Time nut - unspecified [nut] AdvReac RASH Verified 04/21/17 17:47 Physical Exam - Constitutional Appears: No Acute Distress - Eye Exam Eye Exam: EOMI, Normal appearance, PERRL Pupil Exam: NORMAL ACCOMODATION, PERRL - Respiratory Exam Respiratory Exam: Decreased Breath Sounds, Rales, Rhonchi - Cardiovascular Exam Cardiovascular Exam: REGULAR RHYTHM - GI/Abdominal Exam GI & Abdominal Exam: Normal Bowel Sounds, Soft. absent: Tenderness Results - Vital Signs Recent Vital Signs: Last Vital Signs Temp 98.4 F 04/22/17 15:47 Pulse 87 04/22/17 19:07 Resp 20 04/22/17 15:47 BP 125/87 04/22/17 21:33 Pulse Ox 95 04/22/17 15:47 - Labs Result Diagrams: 04/21/17 19:51 04/21/17 22:36 Labs: Laboratory Results - last 24 hr 04/21/17 04/22/17 04/22/17 22:36 02:25 07:27 Potassium 3.6 POC Glucose (mg/dL) 114 H Total Creatine Kinase 248 H CK-MB (Mass) 1.72 Troponin I 0.0360 04/22/17 04/22/17 04/22/17 07:57 11:36 16:05 Potassium POC Glucose (mg/dL) 127 H 96 Total Creatine Kinase 242 H CK-MB (Mass) 1.60 Troponin I 0.0440 04/22/17 20:54 Potassium POC Glucose (mg/dL) 122 H Total Creatine Kinase CK-MB (Mass) Troponin I Assessment & Plan (1) CHF (congestive heart failure) Status: Acute (2) Chest pain Status: Acute (3) Dyspnea Status: Acute (4) Diabetes mellitus Status: Chronic (5) Hypertension Status: Chronic
[2017-04-23] MEDS: Amoxicillin-Clav 875-125 mg Tab PO SCH ×2 (05:55→17:36)
[2017-04-23 07:26] LABS: INR 1.2; PROTHROMBIN TIME 12.9 SECONDS (9.7-12.2)
[2017-04-23] MEDS: Albuterol 0.083% Inhal Sol (2.5 mg/3 mL) UD INH PRN ×2 (07:33→13:23)
[2017-04-23] MEDS: (Novolog) Insulin Aspart, Recombinant 100 u/ml 10 ml vial SC SCH ×4 (08:20→21:37)
[2017-04-23] MEDS: Pantoprazole 40 mg EC Tab PO SCH (09:32)
[2017-04-23] MEDS: Metoprolol Succinate 100 mg XL Tab PO SCH (09:33)
[2017-04-23] MEDS: Potassium Chloride 20 mEq ER Tab PO SCH (09:33)
[2017-04-23] MEDS: Enoxaparin 40 mg Syringe SC SCH (09:34)
[2017-04-23] MEDS: guaiFENesin 600 mg ER Tab PO SCH ×2 (09:38→17:37)
--- NOTE | 2017-04-23 23:26 | CP.PCM.PN ---
Subjective - Date & Time of Evaluation Date of Evaluation: 04/23/17 Time of Evaluation: 13:00 - Subjective Subjective: less sob, less edema fluid restriction Objective - Vital Signs/Intake and Output Vital Signs (last 24 hours): Temp Pulse Resp BP Pulse Ox 98.1 F 78 20 142/79 99 04/23/17 15:49 04/23/17 16:38 04/23/17 15:49 04/23/17 21:57 04/23/17 15:49 Intake and Output: 04/23/17 04/24/17 18:59 06:59 Intake Total 800 Balance 800 - Medications Medications: Current Medications Albuterol (Ventolin Hfa 90 Mcg/Actuation (8 G)) 2 puff IH RQ6 PRN PRN Reason: Shortness of Breath Albuterol Sulfate (Albuterol 0.083% Inhal Vidya (2.5 Mg/3 Ml) Ud) 2.5 mg INH RQ6 PRN PRN Reason: Wheezing Last Admin: 04/23/17 13:23 Dose: 2.5 mg Allopurinol (Zyloprim) 100 mg PO DAILY [facility] Last Admin: 04/23/17 09:32 Dose: 100 mg Amoxicillin/Clavulanate Potassium (Augmentin 875 Mg-125 Mg Tab) 1 tab PO Q12H [facility] PRN Reason: Protocol Last Admin: 04/23/17 17:36 Dose: 1 tab Ascorbic Acid (Vitamin C 500 Mg Tab) 500 mg PO DAILY [facility] Last Admin: 04/23/17 09:35 Dose: 500 mg Aspirin (Ecotrin) 81 mg PO DAILY [facility] Last Admin: 04/23/17 09:33 Dose: 81 mg Enoxaparin Sodium (Lovenox) 40 mg SC DAILY [facility] Last Admin: 04/23/17 09:34 Dose: 40 mg Furosemide (Lasix) 40 mg IVP Q12 [facility] Last Admin: 04/23/17 21:57 Dose: 40 mg Glimepiride (Amaryl) 4 mg PO DAILY [facility] Last Admin: 04/23/17 09:33 Dose: 4 mg Guaifenesin (Mucinex La) 600 mg PO BID [facility] Last Admin: 04/23/17 17:37 Dose: 600 mg Hydralazine HCl (Apresoline) 25 mg PO Q8 [facility] Last Admin: 04/23/17 21:34 Dose: 25 mg Insulin Aspart (Novolog) 0 unit SC [facility] PRN Reason: Protocol Last Admin: 04/23/17 21:37 Dose: Not Given Losartan Potassium (Cozaar) 50 mg PO DAILY [facility] Last Admin: 04/23/17 09:32 Dose: 50 mg Metformin HCl (Glucophage) 1,000 mg PO DAILY [facility] Last Admin: 04/23/17 09:32 Dose: 1,000 mg Metoprolol Succinate (Toprol Xl) 100 mg PO DAILY [facility] Last Admin: 04/23/17 09:33 Dose: 100 mg Pantoprazole Sodium (Protonix Ec Tab) 40 mg PO DAILY [facility] Last Admin: 04/23/17 09:32 Dose: 40 mg Potassium Chloride (K-Dur 20 Meq Er Tab) 20 meq PO DAILY [facility] Last Admin: 04/23/17 09:33 Dose: 20 meq Rosuvastatin Calcium (Crestor) 10 mg PO HS [facility] Last Admin: 04/23/17 21:35 Dose: 10 mg Spironolactone (Aldactone) 25 mg PO DAILY [facility] Last Admin: 04/23/17 09:33 Dose: 25 mg Thiamine HCl (Vitamin B1 Tab) 100 mg PO DAILY [facility] Last Admin: 04/23/17 09:33 Dose: 100 mg - Labs Labs: 04/21/17 19:51 04/21/17 22:36 PT 12.9 SECONDS (9.7-12.2) H 04/23/17 07:10 INR 1.2 04/23/17 07:10 APTT 34 SECONDS (21-34) 04/23/17 07:10 - Constitutional Appears: Non-toxic - Head Exam Head Exam: ATRAUMATIC - Eye Exam Eye Exam: EOMI - ENT Exam ENT Exam: Mucous Membranes Moist - Neck Exam Neck Exam: absent: Lymphadenopathy, Thyromegaly - Respiratory Exam Respiratory Exam: Clear to Ausculation Bilateral. absent: Rales - Cardiovascular Exam Cardiovascular Exam: REGULAR RHYTHM, Murmur - GI/Abdominal Exam GI & Abdominal Exam: Normal Bowel Sounds. absent: Organomegaly - Rectal Exam Rectal Exam: Deferred - Extremities Exam Extremities Exam: Normal Capillary Refill, Pedal Edema. absent: Calf Tenderness - Neurological Exam Neurological Exam: Alert, Oriented x3 - Psychiatric Exam Psychiatric exam: Normal Mood - Skin Skin Exam: Dry Assessment and Plan (1) CHF exacerbation Status: Chronic (2) Diabetes mellitus Status: Chronic (3) Hyperlipidemia Status: Chronic (4) Hypertension Status: Chronic
--- NOTE | 2017-04-23 23:47 | CP.PCM.PN ---
Subjective - Date & Time of Evaluation Date of Evaluation: 04/23/17 Time of Evaluation: 18:45 - Subjective Subjective: Patient is seen and evaluated today during routine rounds, pt is less short of breath, still dyspneac 3 x troponons are neg Objective - Vital Signs/Intake and Output Vital Signs (last 24 hours): Temp Pulse Resp BP Pulse Ox 98.1 F 78 20 142/79 99 04/23/17 15:49 04/23/17 16:38 04/23/17 15:49 04/23/17 21:57 04/23/17 15:49 Intake and Output: 04/23/17 04/24/17 18:59 06:59 Intake Total 800 Balance 800 - Medications Medications: Current Medications Albuterol (Ventolin Hfa 90 Mcg/Actuation (8 G)) 2 puff IH RQ6 PRN PRN Reason: Shortness of Breath Albuterol Sulfate (Albuterol 0.083% Inhal Vidya (2.5 Mg/3 Ml) Ud) 2.5 mg INH RQ6 PRN PRN Reason: Wheezing Last Admin: 04/23/17 13:23 Dose: 2.5 mg Allopurinol (Zyloprim) 100 mg PO DAILY [facility] Last Admin: 04/23/17 09:32 Dose: 100 mg Amoxicillin/Clavulanate Potassium (Augmentin 875 Mg-125 Mg Tab) 1 tab PO Q12H [facility] PRN Reason: Protocol Last Admin: 04/23/17 17:36 Dose: 1 tab Ascorbic Acid (Vitamin C 500 Mg Tab) 500 mg PO DAILY [facility] Last Admin: 04/23/17 09:35 Dose: 500 mg Aspirin (Ecotrin) 81 mg PO DAILY [facility] Last Admin: 04/23/17 09:33 Dose: 81 mg Enoxaparin Sodium (Lovenox) 40 mg SC DAILY [facility] Last Admin: 04/23/17 09:34 Dose: 40 mg Furosemide (Lasix) 40 mg IVP Q12 [facility] Last Admin: 04/23/17 21:57 Dose: 40 mg Glimepiride (Amaryl) 4 mg PO DAILY [facility] Last Admin: 04/23/17 09:33 Dose: 4 mg Guaifenesin (Mucinex La) 600 mg PO BID [facility] Last Admin: 04/23/17 17:37 Dose: 600 mg Hydralazine HCl (Apresoline) 25 mg PO Q8 [facility] Last Admin: 04/23/17 21:34 Dose: 25 mg Insulin Aspart (Novolog) 0 unit SC ACHS [facility] PRN Reason: Protocol Last Admin: 04/23/17 21:37 Dose: Not Given Losartan Potassium (Cozaar) 50 mg PO DAILY [facility] Last Admin: 04/23/17 09:32 Dose: 50 mg Metformin HCl (Glucophage) 1,000 mg PO DAILY [facility] Last Admin: 04/23/17 09:32 Dose: 1,000 mg Metoprolol Succinate (Toprol Xl) 100 mg PO DAILY [facility] Last Admin: 04/23/17 09:33 Dose: 100 mg Pantoprazole Sodium (Protonix Ec Tab) 40 mg PO DAILY [facility] Last Admin: 04/23/17 09:32 Dose: 40 mg Potassium Chloride (K-Dur 20 Meq Er Tab) 20 meq PO DAILY [facility] Last Admin: 04/23/17 09:33 Dose: 20 meq Rosuvastatin Calcium (Crestor) 10 mg PO HS [facility] Last Admin: 04/23/17 21:35 Dose: 10 mg Spironolactone (Aldactone) 25 mg PO DAILY [facility] Last Admin: 04/23/17 09:33 Dose: 25 mg Thiamine HCl (Vitamin B1 Tab) 100 mg PO DAILY [facility] Last Admin: 04/23/17 09:33 Dose: 100 mg - Labs Labs: 04/21/17 19:51 04/21/17 22:36 PT 12.9 SECONDS (9.7-12.2) H 04/23/17 07:10 INR 1.2 04/23/17 07:10 APTT 34 SECONDS (21-34) 04/23/17 07:10 - Constitutional Appears: No Acute Distress, Chronically Ill - Respiratory Exam Respiratory Exam: Decreased Breath Sounds, Rales, Rhonchi - Cardiovascular Exam Cardiovascular Exam: +S1, +S2 - GI/Abdominal Exam GI & Abdominal Exam: Soft, Normal Bowel Sounds. absent: Tenderness Assessment and Plan (1) CHF (congestive heart failure) Assessment & Plan: acute excerberation due to HTN, sleep apnea pt is short of breath Status: Acute (2) Chest pain Status: Acute (3) Dyspnea Status: Acute (4) Diabetes mellitus Status: Chronic (5) Hypertension Status: Chronic
[2017-04-24] MEDS: Amoxicillin-Clav 875-125 mg Tab PO SCH ×2 (05:31→17:36)
[2017-04-24] MEDS: Albuterol 0.083% Inhal Sol (2.5 mg/3 mL) UD INH PRN ×2 (07:24→13:37)
[2017-04-24] MEDS: (Novolog) Insulin Aspart, Recombinant 100 u/ml 10 ml vial SC SCH ×4 (07:28→21:58)
[2017-04-24 07:29] LABS: INR 1.2
[2017-04-24 07:34] LABS: BASO # 0.1 K/uL (0.0-0.2); EOS # 0.2 K/uL (0.0-0.7); EOS % 1.7 % (0.0-4.0); HEMOGLOBIN 14.1 g/dL (12.0-18.0); LYMPH # 3.3 K/uL (1.0-4.3); LYMPH % 25.9 % (20.0-40.0); MEAN CELL VOLUME 89.8 fL (80.0-94.0); MEAN CORPUSCULAR HEMOGLOBIN 29.8 pg (27.0-31.0); MEAN CORPUSCULAR HGB CONC 33.2 g/dL (33.0-37.0); MEAN PLATELET VOLUME 7.8 fL (7.2-11.7); MONO % 7.9 % (0.0-10.0); NEUT % 63.5 % (50.0-75.0); RBC 4.74 Mil/uL (4.40-5.90); RED CELL DISTRIBUTION WIDTH 15.3 % (11.5-14.5); WHITE BLOOD COUNT 12.6 K/uL (4.8-10.8)
[2017-04-24 07:57] LABS: ALB/GLOB RATIO 1.1 (1.0-2.1); ALBUMIN 4.5 g/dL (3.5-5.0); ALT/SGPT 40 U/L (21-72); AST/SGOT 36 U/L (17-59); BLOOD UREA NITROGEN 19 mg/dL (9-20); CALCIUM 9.4 mg/dl (8.6-10.4); GFR AFRICAN-AMERICAN > 60; GFR NON-AFRICAN AMERICAN > 60
[2017-04-24] MEDS: Metoprolol Succinate 100 mg XL Tab PO SCH (10:16)
[2017-04-24] MEDS: Potassium Chloride 20 mEq ER Tab PO SCH (10:16)
[2017-04-24] MEDS: guaiFENesin 600 mg ER Tab PO SCH ×2 (10:16→17:36)
[2017-04-24] MEDS: Pantoprazole 40 mg EC Tab PO SCH (10:17)
[2017-04-24] MEDS: Enoxaparin 40 mg Syringe SC SCH (10:17)
--- NOTE | 2017-04-24 23:19 | CP.PCM.PN ---
Subjective - Date & Time of Evaluation Date of Evaluation: 04/24/17 Time of Evaluation: 18:30 - Subjective Subjective: pt seen and examined at bedside.less short of breath, feeling better, denies any chest pain Objective - Vital Signs/Intake and Output Vital Signs (last 24 hours): Temp Pulse Resp BP Pulse Ox 97.3 F L 78 20 123/78 94 L 04/24/17 16:39 04/24/17 16:39 04/24/17 16:39 04/24/17 22:00 04/24/17 16:39 Intake and Output: 04/24/17 04/25/17 18:59 06:59 Intake Total 480 Balance 480 - Medications Medications: Current Medications Albuterol (Ventolin Hfa 90 Mcg/Actuation (8 G)) 2 puff IH RQ6 PRN PRN Reason: Shortness of Breath Albuterol Sulfate (Albuterol 0.083% Inhal Vidya (2.5 Mg/3 Ml) Ud) 2.5 mg INH RQ6 PRN PRN Reason: Wheezing Last Admin: 04/24/17 13:37 Dose: 2.5 mg Allopurinol (Zyloprim) 100 mg PO DAILY [facility] Last Admin: 04/24/17 10:16 Dose: 100 mg Amoxicillin/Clavulanate Potassium (Augmentin 875 Mg-125 Mg Tab) 1 tab PO Q12H [facility] PRN Reason: Protocol Last Admin: 04/24/17 17:36 Dose: 1 tab Ascorbic Acid (Vitamin C 500 Mg Tab) 500 mg PO DAILY [facility] Last Admin: 04/24/17 10:17 Dose: 500 mg Aspirin (Ecotrin) 81 mg PO DAILY [facility] Last Admin: 04/24/17 10:16 Dose: 81 mg Enoxaparin Sodium (Lovenox) 40 mg SC DAILY [facility] Last Admin: 04/24/17 10:17 Dose: 40 mg Furosemide (Lasix) 40 mg IVP Q12 [facility] Last Admin: 04/24/17 22:00 Dose: 40 mg Glimepiride (Amaryl) 4 mg PO DAILY [facility] Last Admin: 04/24/17 10:16 Dose: 4 mg Guaifenesin (Mucinex La) 600 mg PO BID [facility] Last Admin: 04/24/17 17:36 Dose: 600 mg Hydralazine HCl (Apresoline) 25 mg PO Q8 [facility] Last Admin: 04/24/17 22:00 Dose: 25 mg Insulin Aspart (Novolog) 0 unit SC ACHS [facility] PRN Reason: Protocol Last Admin: 04/24/17 21:58 Dose: Not Given Losartan Potassium (Cozaar) 50 mg PO DAILY [facility] Last Admin: 04/24/17 10:16 Dose: 50 mg Metformin HCl (Glucophage) 1,000 mg PO DAILY [facility] Last Admin: 04/24/17 10:16 Dose: 1,000 mg Metoprolol Succinate (Toprol Xl) 100 mg PO DAILY [facility] Last Admin: 04/24/17 10:16 Dose: 100 mg Pantoprazole Sodium (Protonix Ec Tab) 40 mg PO DAILY [facility] Last Admin: 04/24/17 10:17 Dose: 40 mg Potassium Chloride (K-Dur 20 Meq Er Tab) 20 meq PO DAILY [facility] Last Admin: 04/24/17 10:16 Dose: 20 meq Rosuvastatin Calcium (Crestor) 10 mg PO HS [facility] Last Admin: 04/24/17 22:00 Dose: 10 mg Spironolactone (Aldactone) 25 mg PO DAILY [facility] Last Admin: 04/24/17 10:16 Dose: 25 mg Thiamine HCl (Vitamin B1 Tab) 100 mg PO DAILY [facility] Last Admin: 04/24/17 10:16 Dose: 100 mg - Labs Labs: 04/24/17 07:19 04/24/17 07:19 PT 13.0 SECONDS (9.7-12.2) H 04/24/17 07:19 INR 1.2 04/24/17 07:19 APTT 34 SECONDS (21-34) 04/23/17 07:10 - Constitutional Appears: No Acute Distress - Head Exam Head Exam: ATRAUMATIC, NORMAL INSPECTION, NORMOCEPHALIC - Eye Exam Eye Exam: EOMI, Normal appearance, PERRL Pupil Exam: NORMAL ACCOMODATION, PERRL - Respiratory Exam Respiratory Exam: Clear to Ausculation Bilateral, NORMAL BREATHING PATTERN - Cardiovascular Exam Cardiovascular Exam: REGULAR RHYTHM, +S1, +S2. absent: Murmur - GI/Abdominal Exam GI & Abdominal Exam: Soft, Normal Bowel Sounds. absent: Tenderness Assessment and Plan (1) CHF (congestive heart failure) Status: Acute (2) Chest pain Status: Acute (3) Dyspnea Status: Acute (4) Diabetes mellitus Status: Chronic (5) Hypertension Status: Chronic
[2017-04-25] MEDS: Amoxicillin-Clav 875-125 mg Tab PO SCH ×2 (05:34→17:52)
[2017-04-25] MEDS: (Novolog) Insulin Aspart, Recombinant 100 u/ml 10 ml vial SC SCH ×4 (08:08→22:54)
[2017-04-25] MEDS: Albuterol 0.083% Inhal Sol (2.5 mg/3 mL) UD INH PRN ×2 (09:10→21:52)
[2017-04-25] MEDS: Enoxaparin 40 mg Syringe SC SCH (10:07)
[2017-04-25] MEDS: Metoprolol Succinate 100 mg XL Tab PO SCH (10:08)
[2017-04-25] MEDS: Pantoprazole 40 mg EC Tab PO SCH (10:08)
[2017-04-25] MEDS: Potassium Chloride 20 mEq ER Tab PO SCH (10:08)
[2017-04-25] MEDS: guaiFENesin 600 mg ER Tab PO SCH ×2 (10:08→17:52)
[2017-04-25 11:28] LABS: BASO # 0.1 K/uL (0.0-0.2); BASO % 0.5 % (0.0-2.0); EOS # 0.2 K/uL (0.0-0.7); EOS % 1.8 % (0.0-4.0); HEMOGLOBIN 13.7 g/dL (12.0-18.0); LYMPH # 2.5 K/uL (1.0-4.3); LYMPH % 23.7 % (20.0-40.0); MEAN CELL VOLUME 88.8 fL (80.0-94.0); MEAN CORPUSCULAR HEMOGLOBIN 29.4 pg (27.0-31.0); MEAN PLATELET VOLUME 7.7 fL (7.2-11.7); MONO # 0.8 K/uL (0.0-0.8); MONO % 7.7 % (0.0-10.0); NEUT % 66.3 % (50.0-75.0); RBC 4.68 Mil/uL (4.40-5.90); RED CELL DISTRIBUTION WIDTH 14.7 % (11.5-14.5); WHITE BLOOD COUNT 10.5 K/uL (4.8-10.8)
[2017-04-25 11:31] LABS: INR 1.2; PROTHROMBIN TIME 13.4 SECONDS (9.7-12.2)
[2017-04-25 11:45] LABS: ALB/GLOB RATIO 1.1 (1.0-2.1); ALBUMIN 4.3 g/dL (3.5-5.0); ALT/SGPT 40 U/L (21-72); AST/SGOT 37 U/L (17-59); BLOOD UREA NITROGEN 16 mg/dL (9-20); CALCIUM 9.2 mg/dl (8.6-10.4); GFR AFRICAN-AMERICAN > 60; GFR NON-AFRICAN AMERICAN > 60
[2017-04-25 15:57] VITALS: RESP 20
--- NOTE | 2017-04-25 23:36 | CP.PCM.PN ---
Subjective - Date & Time of Evaluation Date of Evaluation: 04/25/17 Time of Evaluation: 08:00 - Subjective Subjective: PT IS SEEN AND EXAMINED TODAY, pt is improving, less short of breath, less dyspneac, pt is for medical optimization intake out put and cardiac evaluation Objective - Vital Signs/Intake and Output Vital Signs (last 24 hours): Temp Pulse Resp BP Pulse Ox 98.6 F 93 H 20 100/62 96 04/25/17 15:13 04/25/17 16:20 04/25/17 15:13 04/25/17 21:04 04/25/17 16:20 Intake and Output: 04/25/17 04/26/17 18:59 06:59 Intake Total 720 350 Balance 720 350 - Medications Medications: Current Medications Albuterol (Ventolin Hfa 90 Mcg/Actuation (8 G)) 2 puff IH RQ6 PRN PRN Reason: Shortness of Breath Albuterol Sulfate (Albuterol 0.083% Inhal Vidya (2.5 Mg/3 Ml) Ud) 2.5 mg INH RQ6 PRN PRN Reason: Wheezing Last Admin: 04/25/17 21:52 Dose: 2.5 mg Allopurinol (Zyloprim) 100 mg PO DAILY [facility] Last Admin: 04/25/17 10:08 Dose: 100 mg Ascorbic Acid (Vitamin C 500 Mg Tab) 500 mg PO DAILY [facility] Last Admin: 04/25/17 10:07 Dose: 500 mg Aspirin (Ecotrin) 81 mg PO DAILY [facility] Last Admin: 04/25/17 10:07 Dose: 81 mg Enoxaparin Sodium (Lovenox) 40 mg SC DAILY [facility] Last Admin: 04/25/17 10:07 Dose: 40 mg Furosemide (Lasix) 40 mg IVP Q12 [facility] Last Admin: 04/25/17 21:04 Dose: 40 mg Glimepiride (Amaryl) 4 mg PO DAILY [facility] Last Admin: 04/25/17 10:08 Dose: 4 mg Guaifenesin (Mucinex La) 600 mg PO BID [facility] Last Admin: 04/25/17 17:52 Dose: 600 mg Hydralazine HCl (Apresoline) 25 mg PO Q8 [facility] Last Admin: 04/25/17 21:03 Dose: 25 mg Insulin Aspart (Novolog) 0 unit SC ACHS [facility] PRN Reason: Protocol Last Admin: 04/25/17 22:54 Dose: Not Given Losartan Potassium (Cozaar) 50 mg PO DAILY [facility] Last Admin: 04/25/17 10:08 Dose: 50 mg Metformin HCl (Glucophage) 1,000 mg PO DAILY [facility] Last Admin: 04/25/17 10:09 Dose: 1,000 mg Metoprolol Succinate (Toprol Xl) 100 mg PO DAILY [facility] Last Admin: 04/25/17 10:08 Dose: 100 mg Pantoprazole Sodium (Protonix Ec Tab) 40 mg PO DAILY [facility] Last Admin: 04/25/17 10:08 Dose: 40 mg Potassium Chloride (K-Dur 20 Meq Er Tab) 20 meq PO DAILY [facility] Last Admin: 04/25/17 10:08 Dose: 20 meq Rosuvastatin Calcium (Crestor) 10 mg PO HS [facility] Last Admin: 04/25/17 21:03 Dose: 10 mg Spironolactone (Aldactone) 25 mg PO DAILY [facility] Last Admin: 04/25/17 10:08 Dose: 25 mg Thiamine HCl (Vitamin B1 Tab) 100 mg PO DAILY [facility] Last Admin: 04/25/17 10:08 Dose: 100 mg - Labs Labs: 04/25/17 11:17 04/25/17 11:17 PT 13.4 SECONDS (9.7-12.2) H 04/25/17 11:17 INR 1.2 04/25/17 11:17 APTT 34 SECONDS (21-34) 04/23/17 07:10 - Constitutional Appears: No Acute Distress - Head Exam Head Exam: ATRAUMATIC, NORMAL INSPECTION, NORMOCEPHALIC - Eye Exam Eye Exam: EOMI, Normal appearance, PERRL Pupil Exam: NORMAL ACCOMODATION, PERRL - Respiratory Exam Respiratory Exam: Clear to Ausculation Bilateral, NORMAL BREATHING PATTERN - Cardiovascular Exam Cardiovascular Exam: REGULAR RHYTHM, +S1, +S2. absent: Murmur - GI/Abdominal Exam GI & Abdominal Exam: Soft, Normal Bowel Sounds. absent: Tenderness - Rectal Exam Rectal Exam: Deferred Assessment and Plan (1) CHF (congestive heart failure) Status: Acute (2) Chest pain Status: Acute (3) Dyspnea Status: Acute (4) Diabetes mellitus Status: Chronic (5) Hypertension Status: Chronic
[2017-04-26] MEDS: (Novolog) Insulin Aspart, Recombinant 100 u/ml 10 ml vial SC SCH ×3 (07:36→16:48)
[2017-04-26] MEDS: Albuterol 0.083% Inhal Sol (2.5 mg/3 mL) UD INH PRN ×2 (08:00→13:12)
[2017-04-26 08:29] VITALS: TEMP 98
[2017-04-26 08:49] LABS: INR 1.1
[2017-04-26 08:50] LABS: BASO # 0.1 K/uL (0.0-0.2); BASO % 0.9 % (0.0-2.0); EOS # 0.2 K/uL (0.0-0.7); HEMOGLOBIN 13.1 g/dL (12.0-18.0); LYMPH % 29.9 % (20.0-40.0); MEAN CELL VOLUME 88.3 fL (80.0-94.0); MEAN CORPUSCULAR HEMOGLOBIN 29.3 pg (27.0-31.0); MEAN CORPUSCULAR HGB CONC 33.2 g/dL (33.0-37.0); MEAN PLATELET VOLUME 7.6 fL (7.2-11.7); MONO # 0.8 K/uL (0.0-0.8); NEUT # 5.9 K/uL (1.8-7.0); NEUT % 59.2 % (50.0-75.0); RBC 4.46 Mil/uL (4.40-5.90); WHITE BLOOD COUNT 9.9 K/uL (4.8-10.8)
[2017-04-26] MEDS: Enoxaparin 40 mg Syringe SC SCH (09:30)
[2017-04-26] MEDS: Pantoprazole 40 mg EC Tab PO SCH (09:30)
[2017-04-26] MEDS: Metoprolol Succinate 100 mg XL Tab PO SCH (09:31)
[2017-04-26] MEDS: Potassium Chloride 20 mEq ER Tab PO SCH (09:31)
[2017-04-26] MEDS: guaiFENesin 600 mg ER Tab PO SCH (09:38)
[2017-04-26 12:45] LABS: ALB/GLOB RATIO 1.1 (1.0-2.1); ALBUMIN 4.1 g/dL (3.5-5.0); ALT/SGPT 38 U/L (21-72); AST/SGOT 37 U/L (17-59); BLOOD UREA NITROGEN 18 mg/dL (9-20); CALCIUM 9.3 mg/dl (8.6-10.4); GFR AFRICAN-AMERICAN > 60; GFR NON-AFRICAN AMERICAN > 60
--- NOTE | 2017-04-26 15:06 | CP.PCM.PN ---
Subjective - Date & Time of Evaluation Date of Evaluation: 04/26/17 Time of Evaluation: 15:06 - Subjective Subjective: PATIENT WAS ADMITTED FOR CHF AAOX3 DENIES ANY SOB / NAUSEA OR VOMITING NO SIGN OF DISTRESS NOTED Objective - Vital Signs/Intake and Output Vital Signs (last 24 hours): Temp Pulse Resp BP Pulse Ox 98.0 F 84 20 105/73 98 04/26/17 08:28 04/26/17 12:00 04/26/17 08:28 04/26/17 09:31 04/26/17 08:28 Intake and Output: 04/26/17 04/26/17 06:59 18:59 Intake Total 450 Balance 450 - Medications Medications: Current Medications Albuterol (Ventolin Hfa 90 Mcg/Actuation (8 G)) 2 puff IH RQ6 PRN PRN Reason: Shortness of Breath Albuterol Sulfate (Albuterol 0.083% Inhal Vidya (2.5 Mg/3 Ml) Ud) 2.5 mg INH RQ6 PRN PRN Reason: Wheezing Last Admin: 04/26/17 13:12 Dose: 2.5 mg Allopurinol (Zyloprim) 100 mg PO DAILY [facility] Last Admin: 04/26/17 09:31 Dose: 100 mg Ascorbic Acid (Vitamin C 500 Mg Tab) 500 mg PO DAILY [facility] Last Admin: 04/26/17 09:31 Dose: 500 mg Aspirin (Ecotrin) 81 mg PO DAILY [facility] Last Admin: 04/26/17 09:31 Dose: 81 mg Enoxaparin Sodium (Lovenox) 40 mg SC DAILY [facility] Last Admin: 04/26/17 09:30 Dose: 40 mg Furosemide (Lasix) 40 mg IVP Q12 [facility] Last Admin: 04/26/17 09:31 Dose: 40 mg Glimepiride (Amaryl) 4 mg PO DAILY [facility] Last Admin: 04/26/17 09:31 Dose: 4 mg Guaifenesin (Mucinex La) 600 mg PO BID [facility] Last Admin: 04/26/17 09:38 Dose: 600 mg Hydralazine HCl (Apresoline) 25 mg PO Q8 [facility] Last Admin: 04/26/17 13:04 Dose: 25 mg Insulin Aspart (Novolog) 0 unit SC ACHS [facility] PRN Reason: Protocol Last Admin: 04/26/17 12:46 Dose: 2 unit Losartan Potassium (Cozaar) 50 mg PO DAILY [facility] Last Admin: 04/26/17 09:31 Dose: 50 mg Metformin HCl (Glucophage) 1,000 mg PO DAILY [facility] Last Admin: 04/26/17 09:31 Dose: 1,000 mg Metoprolol Succinate (Toprol Xl) 100 mg PO DAILY [facility] Last Admin: 04/26/17 09:31 Dose: 100 mg Pantoprazole Sodium (Protonix Ec Tab) 40 mg PO DAILY [facility] Last Admin: 04/26/17 09:30 Dose: 40 mg Potassium Chloride (K-Dur 20 Meq Er Tab) 20 meq PO DAILY [facility] Last Admin: 04/26/17 09:31 Dose: 20 meq Rosuvastatin Calcium (Crestor) 10 mg PO HS [facility] Last Admin: 04/25/17 21:03 Dose: 10 mg Spironolactone (Aldactone) 25 mg PO DAILY [facility] Last Admin: 04/26/17 09:31 Dose: 25 mg Thiamine HCl (Vitamin B1 Tab) 100 mg PO DAILY [facility] Last Admin: 04/26/17 09:31 Dose: 100 mg Warfarin Sodium (Coumadin) 10 mg PO 1800 [facility] Stop: 04/26/17 18:01 Warfarin Sodium (Coumadin) 2.5 mg PO DAILY@1800 [facility] Stop: 04/26/17 18:01 - Labs Labs: 04/26/17 08:36 04/26/17 12:15 PT 13.0 SECONDS (9.7-12.2) H 04/26/17 08:36 INR 1.1 04/26/17 08:36 APTT 34 SECONDS (21-34) 04/23/17 07:10 Assessment and Plan - Assessment and Plan (Free Text) Assessment: PATIENT SEEN AND EXAMINED AT THE BEDSIDE LUNG SOUND CLEAR MAT WALK ON ROOM AIR AND SATURATED AT 94% INR TODAY IS 1.1 AND 12.5 MG OF COUMADIN WAS GIVEN AND BLOOD WORK TO BE DONE AT PMD OFFICE ON SATURDAY DISCUSS WITH DR YOUSSEF WHO AGREE AND CLEAR PATIENT FOR DC FOLLOW UP WITH DR YOUSSEF ON SATURDAY AT HIS OFFICE ---CALL FOR APPOINTMENE AT YOUR APPOINTMENT ADDRESS YOUR BLOOD WORK FOR YOUR COUMADIN CONTINUE ALL YOUR HOME MEDICATION ORDER NEW PRESCRIPTION GIVEN LASIX 80 MG BY MOUTH DAILY IN THE MORNING LASIX 40 MG BY MOUTH AT NIGHT COUMADIN 7.5 BY MOUTH DAILY\ BLOOD WORK INR ON SATURDAY AT DR YOUSSEF OFFICE ACTIVITY TOLERATED CALL DR DE OLIVEIRA OR GO TO THE EMERGENCY ROOM IF SYMPTOM RETURN OR WORSENING DISCUSS WITH PATIENT WHO AGREE AND VERBALIZED UNDERSTANDING
[2017-04-26 15:53] VITALS: BP 109/77; O2SAT 100
--- NOTE | 2017-04-26 17:38 | PCM.HF ---
Heart Failure Core Measure - Heart Failure Ejection Fraction: Less Than 40 % EUGENIA Inhibitor Prescribed: Yes Beta-Nevin Prescribed: Metoprolol Succinate Angiotensin II Receptor Nevin Prescribed: Yes AnticoagulationTherapy for Atrial Fibrillation/Atrialflutter: Yes Aldosterone Antagonist Prescribed: Yes Hydralazine Nitrate Prescribed: Yes Implantable Cardioverter Defibrillator Therapy: No Contraindication/Reason for not providing: PATIENT HAD A ICD Cardiac Resynchronization Therapy Prescribed: No Contraindication/Reason for not providing: PATIENT HAD A ICD - Follow up Will be discharged to: Home Follow Up Date (must be within 7 days from discharge): 04/30/17 Follow Up Time: 09:00
[2017-04-26 18:05] VITALS: PULSE 80
--- NOTE | 2017-04-26 23:44 | CP.PCM.DIS ---
Provider - Provider Date of Admission: 04/22/17 18:05 Attending physician: Mak Eastman MD Diagnosis - Discharge Diagnosis (1) CHF (congestive heart failure) Status: Acute (2) Chest pain Status: Acute (3) Dyspnea Status: Acute (4) Diabetes mellitus Status: Chronic (5) Hypertension Status: Chronic Hospital Course - Lab Results Lab Results: Most Recent Lab Values WBC 9.9 K/uL (4.8-10.8) 04/26/17 08:36 RBC 4.46 Mil/uL (4.40-5.90) 04/26/17 08:36 Hgb 13.1 g/dL (12.0-18.0) 04/26/17 08:36 Hct 39.3 % (35.0-51.0) 04/26/17 08:36 MCV 88.3 fL (80.0-94.0) 04/26/17 08:36 MCH 29.3 pg (27.0-31.0) 04/26/17 08:36 MCHC 33.2 g/dL (33.0-37.0) 04/26/17 08:36 RDW 15.0 % (11.5-14.5) H 04/26/17 08:36 Plt Count 291 K/uL (130-400) 04/26/17 08:36 MPV 7.6 fL (7.2-11.7) 04/26/17 08:36 Neut % (Auto) 59.2 % (50.0-75.0) 04/26/17 08:36 Lymph % (Auto) 29.9 % (20.0-40.0) 04/26/17 08:36 [place] % (Auto) 8.0 % (0.0-10.0) 04/26/17 08:36 Eos % (Auto) 2.0 % (0.0-4.0) 04/26/17 08:36 Baso % (Auto) 0.9 % (0.0-2.0) 04/26/17 08:36 Neut # (Auto) 5.9 K/uL (1.8-7.0) 04/26/17 08:36 Lymph # (Auto) 3.0 K/uL (1.0-4.3) 04/26/17 08:36 [place] # (Auto) 0.8 K/uL (0.0-0.8) 04/26/17 08:36 Eos # (Auto) 0.2 K/uL (0.0-0.7) 04/26/17 08:36 Baso # (Auto) 0.1 K/uL (0.0-0.2) 04/26/17 08:36 PT 13.0 SECONDS (9.7-12.2) H 04/26/17 08:36 INR 1.1 04/26/17 08:36 APTT 34 SECONDS (21-34) 04/23/17 07:10 Sodium 143 mmol/L (132-148) 04/26/17 12:15 Potassium 4.0 mmol/L (3.6-5.2) 04/26/17 12:15 Chloride 98 mmol/L (98-107) 04/26/17 12:15 Carbon Dioxide 31 mmol/L (22-30) H 04/26/17 12:15 Anion Gap 18 (10-20) 04/26/17 12:15 BUN 18 mg/dL (9-20) 04/26/17 12:15 Creatinine 0.8 mg/dL (0.8-1.5) 04/26/17 12:15 Est GFR ( Amer) > 60 04/26/17 12:15 Est GFR (Non-Af Amer) > 60 04/26/17 12:15 POC Glucose (mg/dL) 91 mg/dL (65-110) 04/26/17 16:12 Random Glucose 220 mg/dL (75-110) H 04/26/17 12:15 Calcium 9.3 mg/dl (8.6-10.4) 04/26/17 12:15 Total Bilirubin 0.4 mg/dL (0.2-1.3) 04/26/17 12:15 AST 37 U/L (17-59) 04/26/17 12:15 ALT 38 U/L (21-72) 04/26/17 12:15 Alkaline Phosphatase 81 U/L (38-126) 04/26/17 12:15 Total Creatine Kinase 242 U/L (55-170) H 04/22/17 07:57 CK-MB (Mass) 1.60 ng/mL (0.0-3.38) 04/22/17 07:57 Troponin I 0.0440 ng/mL (0.00-0.120) 04/22/17 07:57 NT-Pro-B Natriuret Pep 4530 pg/mL (0-900) H 04/21/17 19:51 Total Protein 8.0 g/dL (6.3-8.3) 04/26/17 12:15 Albumin 4.1 g/dL (3.5-5.0) 04/26/17 12:15 Globulin 3.9 gm/dL (2.2-3.9) 04/26/17 12:15 Albumin/Globulin Ratio 1.1 (1.0-2.1) 04/26/17 12:15 Urine Color Jacki (YELLOW) 04/21/17 20:19 Urine Clarity Clear (Clear) 04/21/17 20:19 Urine pH 5.0 (5.0-8.0) 04/21/17 20:19 Ur Specific [place] 1.026 (1.003-1.030) 04/21/17 20:19 Urine Protein 3+ mg/dL (NEGATIVE) H 04/21/17 20:19 Urine Glucose (UA) 3+ mg/dL (Normal) H 04/21/17 20:19 Urine Ketones Negative mg/dL (NEGATIVE) 04/21/17 20:19 Urine Blood Negative (NEGATIVE) 04/21/17 20:19 Urine Nitrate Negative (NEGATIVE) 04/21/17 20:19 Urine Bilirubin Negative (NEGATIVE) 04/21/17 20:19 Urine Urobilinogen 4.0 mg/dL (0.2-1.0) 04/21/17 20:19 Ur Leukocyte Esterase Neg Gabrielle/uL (Negative) 04/21/17 20:19 Urine WBC (Auto) 1 /hpf (0-5) 04/21/17 20:19 Urine RBC (Auto) < 1 /hpf (0-3) 04/21/17 20:19 Ur Squamous Epith Cells < 1 /hpf (0-5) 04/21/17 20:19 Urine Bacteria Rare (<OCC) 04/21/17 20:19 Hyaline Casts 0-2 /lpf (0-2) 04/21/17 20:19 Influenza Typ A,B (EIA) Negative for flu a/b (NEGATIVE) 04/21/17 20:30 Discharge Exam - Head Exam Head Exam: ATRAUMATIC, NORMAL INSPECTION, NORMOCEPHALIC Discharge Plan - Discharge Medications Prescriptions: Warfarin [Coumadin] 7.5 mg PO 1800 #10 tab Furosemide [Lasix] 80 mg PO DAILY #30 tablet Furosemide [Lasix] 40 mg PO HS #30 tab - Follow Up Plan Condition: FAIR Disposition: HOME/ ROUTINE Instructions: Diabetes Diet , Furosemide, Warfarin, Heart Failure (DC) Additional Instructions: FOLLOW UP WITH DR EASTMAN ON SATURDAY AT HIS OFFICE ---CALL FOR APPOINTMENE AT YOUR APPOINTMENT ADDRESS YOUR BLOOD WORK FOR YOUR COUMADIN CONTINUE ALL YOUR HOME MEDICATION ORDER NEW PRESCRIPTION GIVEN LASIX 80 MG BY MOUTH DAILY IN THE MORNING LASIX 40 MG BY MOUTH AT NIGHT COUMADIN 7.5 BY MOUTH DAILY\ BLOOD WORK INR ON SATURDAY AT DR EASTMAN OFFICE ACTIVITY TOLERATED CALL DR DE OLIVEIRA OR GO TO THE EMERGENCY ROOM IF SYMPTOM RETURN OR WORSENING Referrals: Mak Eastman MD [Staff Provider] - Jem Emerson MD [Staff Provider] -
== END 2017-04-26 17:10 | disposition home or self-care (01) | DRG 293 ==
LOC: C.ER 17:24 → C.9E 20:34 → C.5S 04-22 06:53 → OBSVTOIN 04-22 18:05
PROVIDERS: ADMIT Internal Medicine; ATTEND Internal Medicine
DX: I11.0 Hypertensive heart disease with heart failure (principal); I50.23 Acute on chronic systolic (congestive) heart failure; I27.20 Pulmonary hypertension, unspecified; I42.0 Dilated cardiomyopathy; E11.9 Type 2 diabetes mellitus without complications; E66.9 Obesity, unspecified; E78.00 Pure hypercholesterolemia, unspecified; E78.5 Hyperlipidemia, unspecified; G47.30 Sleep apnea, unspecified; J45.909 Unspecified asthma, uncomplicated; Z87.891 Personal history of nicotine dependence; Z95.0 Presence of cardiac pacemaker; Z79.01 Long term (current) use of anticoagulants

== ENCOUNTER 2018-01-04 21:08 | Emergency (ER) | payer MEDICARE ==
[2018-01-04 21:08] VITALS: BMI 42.0
[2018-01-04 21:29] VITALS: TEMP 98
--- NOTE | 2018-01-04 21:34 | C.PDOC ---
History Of Present Illness 52 y/o male pt brought to the ER by EMS for an allergic reaction. Pt is allergic to nuts and ate a cookie that contains nuts. Associated sx includes SOB, diffuse urticaria and closing of his throat. Pt used his epi-pen and 25 mg of benadryl. EMS also gave him 125 mg of solu-medrol later on. Pt now feels better and has no physical complaints. Time Seen by Provider: 01/04/18 21:33 Chief Complaint (Nursing): Allergic Reaction History Per: Patient History/Exam Limitations: no limitations Onset/Duration Of Symptoms: Mins Current Symptoms Are (Timing): Better Possible Cause: Food Associated Symptoms: Skin Rash, Other (throat closing and SOB) Home/EMS Treatment: Benadryl (25 mg ), Epi-pen, Other (solu-medrol:125 mg ) Severity: Moderate Pain Scale Rating Of: 4 Past Medical History Reviewed: Historical Data, Nursing Documentation, Vital Signs Vital Signs: Last Vital Signs Temp 98 F 01/04/18 21:16 Pulse 80 01/04/18 21:16 Resp 15 01/04/18 21:16 BP 155/74 H 01/04/18 21:16 Pulse Ox 97 01/04/18 21:16 - Medical History PMH: Asthma (seasonal), Cardia Arrhythmia, CHF (Sys LV chronic, non ischemic on cath), Diabetes, HTN, Hypercholesterolemia, Hyperlipidemia, Seizures (childhood no longer), Sleep Apnea Surgical History: Endoscopy, Pacemaker - [facility] INFLUENZA VACCINATION (01/06/14) VACCINATION NEC (01/06/14) Family History: States: Unknown Family Hx - Social History Hx Tobacco Use: Yes Hx Alcohol Use: No Hx Substance Use: No - Immunization History Hx Tetanus Toxoid Vaccination: No Hx Influenza Vaccination: No Hx Pneumococcal Vaccination: No Review Of Systems ENT: Negative for: Throat Swelling Respiratory: Negative for: Shortness of Breath Skin: Negative for: Rash Physical Exam - Physical Exam Appears: Non-toxic, No Acute Distress Skin: Normal Color, Warm, Dry, No Rash Head: Normacephalic Oral Mucosa: Moist Throat: Normal Neck: Trachea Midline, Supple Cardiovascular: Rhythm Regular Respiratory: Normal Breath Sounds, No Rales, No Rhonchi, No Wheezing, Other (speaking in full sentences) Gastrointestinal/Abdominal: Soft, No Tenderness, Other (obese) Extremity: Bilateral: Normal Color And Temperature Neurological/Psych: Oriented x3 Gait: Steady ED Course And Treatment O2 Sat by Pulse Oximetry: 97 (RA) Pulse Ox Interpretation: Normal Progress Note: Impression: allergic reaction. Plans: -- pepcid Reevaluation Time: 22:41 Reassessment Condition: Improved Disposition Counseled Patient/Family Regarding: Studies Performed, Diagnosis, Need For Followup, Rx Given - Disposition Referrals: Mak Eastman MD [Staff Provider] - Disposition: HOME/ ROUTINE Disposition Time: 21:34 Condition: FAIR Additional Instructions: Please return if symptoms recur Prescriptions: Epinephrine [Epipen] 0.3 mg IJ ONCE PRN #4 [email or web address] PRN Reason: Anaphylaxis Prednisone [Deltasone] 20 mg PO DAILY #5 tablet Instructions: Hives, Food Allergy Forms: [facility] (Upper Sor[place]) - Clinical Impression Clinical Impression: Allergic reaction - Scribe Statement The provider has reviewed the documentation as recorded by the Scribe Fabienne Orosco Provider Attestation: All medical record entries made by the Scribe were at my direction and personally dictated by me. I have reviewed the chart and agree that the record accurately reflects my personal performance of the history, physical exam, medical decision making, and the department course for this patient. I have also personally directed, reviewed, and agree with the discharge instructions and disposition.
[2018-01-04 22:53] VITALS: BP 132/74; PULSE 74; RESP 20; O2SAT 98
== END 2018-01-04 22:54 | disposition home or self-care (01) ==
LOC: C.ER 21:08
DX: T78.40XA Allergy, unspecified, initial encounter (principal)